=== PATIENT | male | born 1965 | race Caucasian/White ===

== ENCOUNTER → 2019-07-25 14:32 | Outpatient (BNVA) | payer MEDICARE, SELFPAY | PROVIDERS: Family Provider Nurse Practitioner Family; PCP Family Medicine; Visit Provider Nurse Practitioner | DX: F25.0 Schizoaffective disorder, bipolar type (principal); F70 Mild intellectual disabilities | CPT/HCPCS: 99213 ==

== ENCOUNTER → 2020-01-03 07:34 | Outpatient (BNVA) | payer MEDICARE, SELFPAY | PROVIDERS: Family Provider Nurse Practitioner Family; PCP Family Medicine; Visit Provider Nurse Practitioner | DX: F25.0 Schizoaffective disorder, bipolar type (principal); F70 Mild intellectual disabilities | CPT/HCPCS: 99214 ==

== ENCOUNTER → 2020-02-15 07:38 | Outpatient (BNVA) | payer MEDICARE, SELFPAY | PROVIDERS: Family Provider Nurse Practitioner Family; PCP Family Medicine; Visit Provider Nurse Practitioner | DX: F25.0 Schizoaffective disorder, bipolar type (principal); F70 Mild intellectual disabilities | CPT/HCPCS: 99214 ==

== ENCOUNTER → 2020-08-08 07:42 | Outpatient (BNVA) | payer MEDICARE, SELFPAY | PROVIDERS: Family Provider Nurse Practitioner Family; PCP Family Medicine; Visit Provider Nurse Practitioner | DX: F70 Mild intellectual disabilities (principal); F25.0 Schizoaffective disorder, bipolar type | CPT/HCPCS: 99214 ==

== ENCOUNTER 2020-11-11 09:34 | Emergency (ER) | payer MEDICARE, SELFPAY ==
[2020-11-11 09:36] VITALS: BP 153/71; PULSE 84; RESP 18; TEMP 36.8; O2SAT 97; BMI 38.0
[2020-11-11 09:51] VITALS: BP 153/71; PULSE 74; PULSE 75; RESP 18; O2SAT 95
--- NOTE | 2020-11-11 09:51 | CT_ITS ---
WS: [id number] CT HEAD TECHNIQUE: Noncontrast CT of the head obtained from the skullbase to the vertex. CLINICAL INFORMATION: Symptoms of Acute Stroke COMPARISON: None. DLP: 997.[address] scans at [facility] use at least one of these dose optimization techniques: automat ed exposure control; mA and/or kV adjustment per patient size (includes targeted exams where dose is matched to clinical indication); or iterative reconstruction. FINDINGS: No evidence of intracranial hemorrhage or mass effect. Ventricular system and basal cisterns are cook nt. Mild small vessel changes with moderate parenchymal volume loss. No extra-axial fluid collections . No evidence of mass or mass effect. Normal cochran-white differentiation. Chronic vermian atrophy is u nchanged Mucosal thickening ethmoid air cells and right mastoid tip. CT/CT head wo con* [id number] IMPRESSION: 1. No evidence of intracranial hemorrhage or mass effect. 2. Mild small vessel changes. Moderate parenchymal volume loss. 3. No acute intracranial findings. Notified Manuel Jernigan DO at 11/11/2020 10:40 AM.
--- NOTE | 2020-11-11 09:51 | ECG_ITS ---
[facility] Test Date: 2020-11-11 Pat Name: Luisito Wilkinson Department: Room: Gender: Male Control Panel Tester: : 1965 Requested By: Manuel Patrick Order Number: [id number] Dianne MD: Jarret Najera M.D. Measurements Intervals [place] Rate: 75 P: 19 ID: [id number] QRS: 94 QRSD: 101 T: 31 QT: 417 QTc: 466 Interpretive Statements SINUS RHYTHM BORDERLINE RIGHT AXIS DEVIATION [QRS AXIS > 90] INCOMPLETE RIGHT BUNDLE BRANCH BLOCK [90+ ms QRS DURATION, TERMINAL R IN V1/V2, 40+ ms S IN I/aVL/V4/V5/V6] No previous ECG available for comparison Electronically Signed On 11-12-2020 0:42:55 CDT by Jarret Najera M.D. [id number]
[2020-11-11 09:57] LABS: Basophils % 0.6 %; Eosinophils # 0.8 10^3/uL (0.0-0.8); Eosinophils % 10.7 %; Hemoglobin 13.2 g/dL (11.7-16.6); Lymphocytes # 1.7 10^3/uL (0.8-4.8); Lymphocytes % 23.8 %; Mean Corpuscular HGB Conc 31.4 g/dL (30.0-36.0); Mean Corpuscular Hemoglobin 25.8 pg (28.0-34.0); Mean Platelet Volume 10.1 fL (7.4-10.4); Monocytes # 0.3 10^3/uL (0.2-0.9); Monocytes % 4.5 %; Neutrophils # 4.33 10^3/uL (1.8-7.7); Neutrophils % 60.1 %; Nucleated Red Blood Cells % 0 %; Platelet Count 157 10^3/cmm (130-400); Red Blood Count 5.12 10^6/uL (4.1-5.3); White Blood Count 7.2 10^3/uL (4.0-10.0)
--- NOTE | 2020-11-11 10:10 | W.ED.NEUROSD ---
HPI - Neuro Symptoms/Deficit General: Chief Complaint: Neuro Symptoms/Deficit Stated Complaint: R SIDED FACIAL DROOPING SINCE WEDNESDAY Time Seen by Provider: 11/11/20 09:35 History of Present Illness: HPI Narrative: 55-year-old male presents emergency room via ambulance with a right-sided facial droop. Is been present for the last 3 days. Patient states he occasionally has some blurring of vision. Is having a little bit of difficulty eating and swallowing and drinking as well as drooling is noticed watering from the right eye. No weakness in his hands or feet. His gait has been unaffected. Patient also notes alteration in taste since began this began Onset (ago): day(s) (3) Timing confirmed by: caregiver Location: right face History of same: No Severity: mild Quality: weak Relieving factors: none Exacerbating factors: none Context: sudden onset On Anticoagulants: No Associated symptoms: Deny chest pain, cough, diaphoresis, fevers/chills, headache(s), anorexia, malaise, nausea, seizures, short of breath, syncope, tingling, vertigo, vomiting, weakness or other Treatments Prior to Arrival: none Review of Systems Const: Denies: malaise or diaphoresis ENMT: Denies: throat pain, ear or mastoid pain, nasal discharge or nasal congestion Card: Denies: chest pain or syncope Resp: Denies: dyspnea, productive cough or non-productive cough GI: Denies: nausea or vomiting : Denies: flank pain, dysuria, urinary frequency or urinary urgency Skin/Breast: Denies: rash or pruritus Neuro: Denies: headache(s) or vertigo PFS ED PFSH: Medical History Mild intellectual disabilities Schizoaffective disorder, bipolar type Social History Smoking and tobacco status: never smoked Physical Exam Const: COMMON NORMALS: no acute distress GENERAL APPEARANCE: cooperative and comfortable ORIENTATION/CONSCIOUSNESS: Yes awake, Yes oriented to person, Yes oriented to place and Yes oriented to time HENMT: COMMON NORMALS: normocephalic, atraumatic, hearing grossly normal bilaterally, external ears normal, EAC's normal, TM's normal bilaterally, Normal nasal mucous membranes and turbinates present, moist oral mucous membranes and oropharynx normal HEAD & SCALP: normocephalic and atraumatic NOSE: Normal nasal mucous membranes and turbinates present EXTERNAL EAR: Yes external ears normal EXTERNAL AUDITORY CANAL: EAC's normal TYMPANIC MEMBRANE: TM's normal bilaterally Neck/C-Spine: COMMON NORMALS: full ROM, no lymphadenopathy, supple and no JVD Lymph: LYMPHATIC: no lymphadenopathy noted and no lymphedema noted Resp: COMMON NORMALS: normal respiratory effort, No retractions, No use of accessory muscles and clear to auscultation bilaterally AUSCULTATION: clear to auscultation bilaterally Cardio: COMMON NORMALS: no JVD, regular rate, regular rhythm and No murmurs present (Cardio) RATE: regular rate RHYTHM: regular rhythm GI: COMMON NORMALS: Soft to palpation and No hepatosplenomegaly present AUSCULTATION: Yes normoactive bowel sounds PALPATION: Yes Soft to palpation, No Tenderness to palpation present (GI), No Guarding due to palpation present (GI) and Yes No hepatosplenomegaly present Extremity: COMMON NORMALS: normal to inspection, capillary refill normal, no clubbing, cyanosis or edema, no calf tenderness and no pedal edema Neuro: SENSORIUM/ORIENTATION: Yes oriented to person, Yes oriented to place and Yes oriented to time Skin: COMMON NORMALS: no rashes or lesions noted GENERAL SKIN EXAM: no rashes or lesions noted Course Vital Signs: Vital signs: Vital Signs Temperature 98.2 F 11/11/20 09:36 Pulse Rate 74 11/11/20 10:33 Respiratory Rate 15 11/11/20 12:14 Blood Pressure 153/71 11/11/20 09:51 Pulse Oximetry 95 11/11/20 09:51 MDM - Neuro Symptoms/Deficit MDM Narrative: Medical decision making narrative: No sparing the forehead no other neurologic deficits CT is negative. Has had this deficit for several days. 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 Discussed with him possible steroids and I am concerned about raising his blood sugars will just hold off with that for now follow-up with his primary care doctor return if has problems. Lab Data: Labs: Lab Results 11/11/20 11/11/20 11/11/20 Range/Units 09:50 09:50 10:20 WBC 7.2 (4.0-10.0) 10^3/ uL RBC 5.12 (4.1-5.3) 10^6/u L Hgb 13.2 (11.7-16.6) g/dL Hct 42.0 (42.0-52.0) % MCV 82.0 (80-94) fL MCH 25.8 L (28.0-34.0) pg MCHC 31.4 (30.0-36.0) g/dL RDW 14.0 (12.1-15.1) % Plt Count 157 (130-400) 10^3/c mm MPV 10.1 (7.4-10.4) fL Neut % (Auto) 60.1 % Lymph % (Auto) 23.8 % [place] % (Auto) 4.5 % Eos % (Auto) 10.7 % Baso % (Auto) 0.6 % Neut # (Auto) 4.33 (1.8-7.7) 10^3/u L Lymph # (Auto) 1.7 (0.8-4.8) 10^3/u L [place] # (Auto) 0.3 (0.2-0.9) 10^3/u L Eos # (Auto) 0.8 (0.0-0.8) 10^3/u L Baso # (Auto) 0.0 (0.0-0.1) 10^3/u L Nucleated RBC % (a uto) 0 % Nucleated RBCs # 0.0 /100WBC PT 14.30 (12.1-14.9) SECO NDS INR 1.08 (0.8-1.2) APTT 26.6 (23.9-36.7) SECO NDS Sodium 136 (136-145) mmol/L Potassium 4.2 (3.5-5.1) mmol/L Chloride 99 (98-107) mmol/L Carbon Dioxide 24 (22-29) mmol/L Anion Gap 17.2 (5-19) BUN 10 (6-20) mg/dL Creatinine 0.6 L (0.7-1.2) mg/dL GFR Calculation 138.9 H (90-130) mL/min Glucose 286 H (65-115) mg/dL Calculated Osmolal ity 291 (285-295) mOsm/k g Calcium 8.5 (8.5-10.5) mg/dL Total Bilirubin 0.6 (0.15-1.2) mg/dL AST 39 (0-40) U/L ALT 54 H (0-41) U/L Alkaline Phosphata se 56 (40-130) IU/L Total Protein 7.2 (6.6-8.7) g/dL Albumin 4.4 (3.5-5.2) g/dL Globulin 2.8 (1.3-4.6) g/dL Urine Color (Yellow) Urine Appearance (CLEAR) Urine pH (5-7) Ur Specific Gravit y (1.005-1.030) Urine Protein (Negative) Urine Glucose (UA) (Normal) Urine Ketones (Negative) Urine Blood (Negative) Urine Nitrate (Negative) Urine Bilirubin (Negative) Urine Urobilinogen (Negative) mg/dL Ur Leukocyte Gracie ase (Negative) Urine Opiates Scre en (Negative) ng/mL Ur Barbiturates Sc reen (Negative) ng/mL Ur Phencyclidine S crn (Negative) ng/mL Ur Amphetamines Sc reen (Negative) ng/mL U Benzodiazepines Scrn (Negative) ng/mL Urine Cocaine Scre en (Negative) ng/mL U Marijuana (THC) Screen (Negative) ng/mL 11/11/20 11/11/20 Range/Units 10:40 10:40 WBC (4.0-10.0) 10^3/ uL RBC (4.1-5.3) 10^6/u L Hgb (11.7-16.6) g/dL Hct (42.0-52.0) % MCV (80-94) fL MCH (28.0-34.0) pg MCHC (30.0-36.0) g/dL RDW (12.1-15.1) % Plt Count (130-400) 10^3/c mm MPV (7.4-10.4) fL Neut % (Auto) % Lymph % (Auto) % [place] % (Auto) % Eos % (Auto) % Baso % (Auto) % Neut # (Auto) (1.8-7.7) 10^3/u L Lymph # (Auto) (0.8-4.8) 10^3/u L [place] # (Auto) (0.2-0.9) 10^3/u L Eos # (Auto) (0.0-0.8) 10^3/u L Baso # (Auto) (0.0-0.1) 10^3/u L Nucleated RBC % (a uto) % Nucleated RBCs # /100WBC PT (12.1-14.9) SECO NDS INR (0.8-1.2) APTT (23.9-36.7) SECO NDS Sodium (136-145) mmol/L Potassium (3.5-5.1) mmol/L Chloride (98-107) mmol/L Carbon Dioxide (22-29) mmol/L Anion Gap (5-19) BUN (6-20) mg/dL Creatinine (0.7-1.2) mg/dL GFR Calculation (90-130) mL/min Glucose (65-115) mg/dL Calculated Osmolal ity (285-295) mOsm/k g Calcium (8.5-10.5) mg/dL Total Bilirubin (0.15-1.2) mg/dL AST (0-40) U/L ALT (0-41) U/L Alkaline Phosphata se (40-130) IU/L Total Protein (6.6-8.7) g/dL Albumin (3.5-5.2) g/dL Globulin (1.3-4.6) g/dL Urine Color Straw (Yellow) Urine Appearance Clear (CLEAR) Urine pH 7 (5-7) Ur Specific Gravit y 1.010 (1.005-1.030) Urine Protein Neg (Negative) Urine Glucose (UA) 4+ H (Normal) Urine Ketones Negative (Negative) Urine Blood Neg (Negative) Urine Nitrate Negative (Negative) Urine Bilirubin Neg (Negative) Urine Urobilinogen Norm (Negative) mg/dL Ur Leukocyte Gracie ase Negative (Negative) Urine Opiates Scre en Negative (Negative) ng/mL Ur Barbiturates Sc reen Negative (Negative) ng/mL Ur Phencyclidine S crn Negative (Negative) ng/mL Ur Amphetamines Sc reen Negative (Negative) ng/mL U Benzodiazepines Scrn Negative (Negative) ng/mL Urine Cocaine Scre en Negative (Negative) ng/mL U Marijuana (THC) Screen Negative (Negative) ng/mL Discharge Plan Discharge Patient Disposition: Home Clinical Impression: Thomas's palsy Condition: Stable Prescriptions: No Action rosuvastatin [Crestor] 20 mg tablet 20 mg PO DAILY@20 RF: 0 omeprazole 40 mg capsule,delayed release(DR/EC) 40 mg PO DAILY@07 RF: 0 amlodipine 10 mg tablet 10 mg PO DAILY@08 RF: 0 olmesartan [Benicar] 40 mg tablet 40 mg PO DAILY@07 RF: 0 Ozempic 0.25 mg or 0.5 mg(2 mg/1.5 mL) pen injector 0.5 mg SUBCUT Q7D RF: 0 acetaminophen 325 mg Tablet 325 - 650 mg PO Q6H PRN (Reason: Pain) RF: 0 oxybutynin chloride 10 mg Tablet Extended Release 24hr 10 mg PO DAILY@08 RF: 0 metoprolol succinate 50 mg Tablet Extended Release 24 Hr 50 mg PO DAILY@07 RF: 0 Imodium A-D 2 mg Tablet 2 mg PO TID PRN (Reason: unknown) RF: 0 Aspir-81 81 mg Tablet,Delayed Release (Dr/Ec) 81 mg PO DAILY@07 RF: 0 hydrochlorothiazide 12.5 mg Capsule 12.5 mg PO DAILY@07 RF: 0 ibuprofen 600 mg Tablet 600 mg PO TID PRN (Reason: Pain) RF: 0 risperidone 1 mg Tablet 1 mg PO BID@, RF: 0 metformin 500 mg Tablet Extended Release 24hr 1,000 mg PO BID@, RF: 0 Milk Of Magnesia Concentrated 2,400 mg/10 mL Suspension 30 ml PO DAILY PRN (Reason: Acid Reflux) RF: 0 Amelia 3 350-400 mg Capsule 1 cap PO DAILY@07 RF: 0 desmopressin 0.2 mg tablet 0.1 mg PO DAILY@20 RF: 0 sertraline 100 mg tablet 100 mg PO DAILY@07 RF: 0 Latuda 80 mg tablet 80 mg PO DAILY@07 RF: 0 Antifungal Cream (miconazole) 2 % Cream 1 applic TOPICAL BID@, RF: 0 Eucerin Lotion 1 applic TOPICAL DAILY@20 RF: 0 Humalog KwikPen Insulin 100 unit/mL Insulin Pen 12 unit SUBCUT TID RF: 0 Gold Queen Medicated Foot 1 % Powder 1 applic TOPICAL DAILY@06 RF: 0 Minerin Creme Cream 1 applic TOPICAL DAILY@20 RF: 0 Tresiba FlexTouch U-200 200 unit/mL (3 mL) Insulin Pen 66 unit SUBCUT BID@07,21 RF: 0 Discharge Orders: Discharge ED (Routine); Ordered 11/11/20 Ordered By: Manuel Jernigan Patient Instructions: Opioid Safety Coding Level of Care Code ED Splicing Supervisor for Chg Fwd Exam Comprehensive
[2020-11-11 10:29] LABS: Alanine Aminotransferase 54 U/L (0-41); Albumin Level 4.4 g/dL (3.5-5.2); Alkaline Phosphatase 56 IU/L (40-130); Anion Gap 17.2 (5-19); Aspartate Amino Transferase 39 U/L (0-40); Blood Urea Nitrogen 10 mg/dL (6-20); Calcium 8.5 mg/dL (8.5-10.5); Carbon Dioxide 24 mmol/L (22-29); Chloride 99 mmol/L (98-107); Globulin 2.8 g/dL (1.3-4.6); Glomerular Filtration Rate 138.9 mL/min (90-130); Glucose 286 mg/dL (65-115); Osmolality Calculated 291 mOsm/kg (285-295); Potassium 4.2 mmol/L (3.5-5.1); Sodium 136 mmol/L (136-145); Total Bilirubin 0.6 mg/dL (0.15-1.2); Total Protein 7.2 g/dL (6.6-8.7)
[2020-11-11 10:33] VITALS: PULSE 74
[2020-11-11 10:40] LABS: INR 1.08 (0.8-1.2)
[2020-11-11 10:41] LABS: Partial Thromboplastin Time 26.6 SECONDS (23.9-36.7)
[2020-11-11 10:49] LABS: Add Urine Microscopic? NO; Charge for UA Resulting for Rev
[2020-11-11 10:57] LABS: Urine Appearance Clear (CLEAR); Urine Color Straw (Yellow); pH Urine 7 (5-7)
[2020-11-11 10:58] LABS: Bilirubin Urine Neg (Negative); Blood Urine Neg (Negative); Glucose Urine UA 4+ (Normal); Ketones Urine Negative (Negative); Leukocyte Esterase Urine Negative (Negative); Nitrate Urine Negative (Negative); Protein Urine Neg (Negative); Urobilinogen Urine Norm (Negative)
[2020-11-11 11:09] LABS: Amphetamines Screen Urine Negative (Negative); Barbiturates Screen Urine Negative (Negative); Benzodiazepines Screen Urine Negative (Negative); Cocaine Screen Urine Negative (Negative); Opiate Screen Urine Negative (Negative); PCP Screen Urine Negative (Negative); THC Screen Urine Negative (Negative)
[2020-11-11 11:33] VITALS: RESP 15
[2020-11-11 12:14] VITALS: RESP 15
== END 2020-11-11 12:20 | disposition home or self-care (01) ==
PROVIDERS: Emergency Provider Family Medicine
DX: G51.0 Bell's palsy (principal); Z79.82 Long term (current) use of aspirin; Z79.4 Long term (current) use of insulin; Z79.899 Other long term (current) drug therapy
CPT/HCPCS: 70450; 80053; 80306; 81003; 85025; 85610; 85730; 93005; 99284

== ENCOUNTER 2021-11-18 18:14 | Emergency (ER) | payer OTHER, MEDICARE, SELFPAY ==
--- NOTE | 2021-11-18 18:15 | ECG_ITS ---
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 Measurements Intervals [place] Rate: 96 P: 18 DE: 125 QRS: 70 QRSD: 106 T: 44 QT: 365 QTc: 463 Interpretive Statements SINUS RHYTHM Compared to ECG 11/11/2020 10:21:44 Incomplete right bundle-branch block no longer present Electronically Signed On 11-18-2021 18:54:11 CDT by Jarret Najera M.D. [id number]
--- NOTE | 2021-11-18 18:15 | XRR_ITS ---
PROCEDURE INFORMATION: Exam: XR Chest Exam date and time: 11/18/2021 6:22 PM Age: 56 years old Clinical indication: Chest wall pain; Additional info: Cp TECHNIQUE: Imaging protocol: XR of the chest. Views: 1 view. COMPARISON: No relevant prior studies available. FINDINGS: Lungs: Unremarkable. No consolidation. Pleural spaces: Unremarkable. No pleural effusion. No pneumothorax. Heart/Mediastinum: Unremarkable. No cardiomegaly. Bones/joints: Unremarkable. XR/XR chest 1V portable [id number] IMPRESSION: No acute findings.
--- NOTE | 2021-11-18 18:21 | CTR_ITS ---
PROCEDURE INFORMATION: Exam: CT Head Without Contrast Exam date and time: 11/18/2021 6:51 PM Age: 56 years old Clinical indication: Other: Drowsy, lethargic; Additional info: History--received shingles vaccine today and after receiving it he became drowsy/lethargic, clammy, and had chest pain. TECHNIQUE: Imaging protocol: Computed tomography of the head without contrast. Radiation optimization: All CT scans at this facility use at least one of these dose optimization techniques: automated exposure control; mA and/or kV adjustment per patient size (includes targeted exams where dose is matched to clinical indication); or iterative reconstruction. COMPARISON: CT head wo con* [id number] 11/11/2020 10:03 AM RADIATION DOSE METRICS: Total DLP (mGy-cm): 3130.77 FINDINGS: Brain: Normal. No hemorrhage. Unremarkable white matter. No mass effect. Cerebral ventricles: No ventriculomegaly. Paranasal sinuses: Bilateral maxillary sinus mucosal thickening without air-fluid level. Mastoid air cells: Visualized mastoid air cells are well aerated. Bones/joints: Unremarkable. No acute fracture. Soft tissues: Unremarkable. CT/CT head wo con* [id number] IMPRESSION: Negative for acute intracranial abnormality.
--- NOTE | 2021-11-18 18:27 | W.ED.CHESTPA ---
HPI - Chest Pain General: Chief Complaint: General Medical Stated Complaint: STEMI ALERT Time Seen by Provider: 11/18/21 18:15 Source: EMS Mode of arrival: EMS Limitations: no limitations History of Present Illness: 56-year-old male who is here from an assisted living [facility] was normal then states that when he came back at 4 he had been having some slurred speech generalized weakness difficulty walking also complaining of chest pain and shortness of breath. Patient here states that he just feels weak all over and is having some slight chest pain he rates a 1 out of 10 he feels short of breath. He denies any worsening improving factors last known normal was 2 PM. EMS was called for STEMI alert reviewing his EKG with him and his EKG here it is not a STEMI. Associated symptoms: Reports dyspnea; Deny abdominal pain, nausea or vomiting Review of Systems Const: Reports: fatigue Eyes: Denies: blurry vision or eye discomfort ENMT: Denies: throat pain or dental pain Card: Reports: chest pain Resp: Reports: dyspnea GI: Denies: abdominal pain, nausea, vomiting or diarrhea : Denies: dysuria Musc: Denies: neck pain or back pain Skin/Breast: Denies: rash Neuro: Reports: weakness in extremities Psych: Denies: depression Sreekanth/Lymph: Denies: easy bruising All/Imm: Denies: urticaria PFSH ED PFSH: Medical History Mild intellectual disabilities Schizoaffective disorder, bipolar type Social History Smoking and tobacco status: never smoked Course Vital Signs: Vital signs: Vital Signs Temperature 98.2 F 11/18/21 18:31 Pulse Rate 94 11/18/21 18:31 Respiratory Rate 22 H 11/18/21 18:31 Blood Pressure 131/63 11/18/21 18:31 Pulse Oximetry 92 11/18/21 18:31 MDM - Chest Pain Medical Decision Making Patient presents here with some generalized weakness very mild chest pain is initial repeat troponins and EKGs here are all normal after speaking to the [place] [facility] his weakness is actually at his baseline he has no focal deficits he does have some slurred speech but talking to [facility] again that is his baseline and he is at his baseline here. He was able to ambulate the halls here with a walker without any difficulty and uses a walker in the [facility]. X-ray shows no signs of pneumonia he is stable for discharge back to [facility] return if worsening he understands agrees to plan. Lab Data : 11/18/21 18:15 11/18/21 18:15 Radiology Impressions Chest X-Ray 11/18/21 18:15 IMPRESSION: No acute findings. Head CT 11/18/21 18:21 IMPRESSION: Negative for acute intracranial abnormality. Laboratory Results WBC 12.5 10^3/uL (4.0-10.0) H 11/18/21 18:15 RBC 4.74 10^6/uL (4.1-5.3) 11/18/21 18:15 Hgb 11.9 g/dL (11.7-16.6) 11/18/21 18:15 Hct 37.3 % (42.0-52.0) L 11/18/21 18:15 MCV 78.7 fl (80-94) L 11/18/21 18:15 MCH 25.1 pg (28.0-34.0) L 11/18/21 18:15 MCHC 31.9 g/dL (30.0-36.0) 11/18/21 18:15 RDW 15.0 % (12.1-15.1) 11/18/21 18:15 Plt Count 164 10^3/cmm (130-400) 11/18/21 18:15 MPV 10.6 fL (7.4-10.4) H 11/18/21 18:15 Neut % (Auto) 80.2 % 11/18/21 18:15 Lymph % (Auto) 11.7 % 11/18/21 18:15 [place] % (Auto) 6.6 % 11/18/21 18:15 Eos % (Auto) 0.9 % 11/18/21 18:15 Baso % (Auto) 0.3 % 11/18/21 18:15 Neut # (Auto) 10.03 10^3/uL (1.8-7.7) H 11/18/21 18:15 Lymph # (Auto) 1.5 10^3/uL (0.8-4.8) 11/18/21 18:15 [place] # (Auto) 0.8 10^3/uL (0.2-0.9) 11/18/21 18:15 Eos # (Auto) 0.1 10^3/uL (0.0-0.8) 11/18/21 18:15 Baso # (Auto) 0.0 10^3/uL (0.0-0.1) 11/18/21 18:15 Nucleated RBC % (auto) 0 % 11/18/21 18:15 Nucleated RBCs # 0.0 /100WBC 11/18/21 18:15 PT 15.40 SECONDS (12.1-14.9) H 11/18/21 18:15 INR 1.18 (0.8-1.2) 11/18/21 18:15 D-Dimer <= 0.27 ug/mIFEU (0-0.59) 11/18/21 18:15 Specimen Type Arterial 11/18/21 18:30 Sample Site Radial, right 11/18/21 18:30 ABG pH 7.38 (7.35-7.45) 11/18/21 18:30 ABG pCO2 42.9 mmHg (35-45) 11/18/21 18:30 ABG pO2 71.6 mmHg (80.0-100.0) L 11/18/21 18:30 ABG HCO3 25.5 mmol/L (22-26) 11/18/21 18:30 ABG Base Excess 0.2 mmol/L (-2.0-2.0) 11/18/21 18:30 Junior Test Pos 11/18/21 18:30 Hematocrit 38.2 % (42-52) L 11/18/21 18:30 O2 Delivery Device Nc 11/18/21 18:30 O2 Liters/Min 2.0 % 11/18/21 18:30 FiO2 28.0 % 11/18/21 18:30 Hotel Manager ID Gd 11/18/21 18:30 Sodium 133 mmol/L (136-145) L 11/18/21 18:15 Potassium 3.8 mmol/L (3.5-5.1) 11/18/21 18:15 Chloride 95 mmol/L (98-107) L 11/18/21 18:15 Carbon Dioxide 23 mmol/L (22-29) 11/18/21 18:15 Anion Gap 18.8 (5-19) 11/18/21 18:15 BUN 21 mg/dL (6-20) H 11/18/21 18:15 Creatinine 1.0 mg/dL (0.7-1.2) 11/18/21 18:15 GFR Calculation 76.7 mL/min (90-130) L 11/18/21 18:15 Glucose 297 mg/dL (65-115) H 11/18/21 18:15 Calculated Osmolality 290 mOsm/kg (285-295) 11/18/21 18:15 Calcium 8.3 mg/dL (8.5-10.5) L 11/18/21 18:15 Total Bilirubin 0.6 mg/dL (0.15-1.2) 11/18/21 18:15 AST 23 U/L (0-40) 11/18/21 18:15 ALT 37 U/L (0-41) 11/18/21 18:15 Alkaline Phosphatase 57 IU/L (40-130) 11/18/21 18:15 Troponin T Baseline 21 ng/L (0-15) H 11/18/21 18:15 Troponin T 120 Minute 18.72 ng/L (0-15) H 11/18/21 20:36 Delta Troponin T -2.28 ABS# (0-10) L 11/18/21 20:36 NT-Pro-B Natriuret Pep 203 pg/mL (0-125) H 11/18/21 18:15 Total Protein 6.7 g/dL (6.6-8.7) 11/18/21 18:15 Albumin 4.3 g/dL (3.5-5.2) 11/18/21 18:15 Globulin 2.4 g/dL (1.3-4.6) 11/18/21 18:15 EKG Data EKG 1: I personally reviewed and interpreted this EKG as follows: EKG interpretation date: 11/18/21 EKG interpretation time: 18:19 Interpretation: nsr hr [address] or t wave abnormalities qrs 106 qtc 419 EKG 2: I personally reviewed and interpreted this EKG as follows: EKG interpretation date: 11/18/21 EKG interpretation time: 19:35 Interpretation: nsr hr [address] or t wave abnormalities qrs 91 qtc 425 Discharge Plan Discharge Patient Disposition: Home Clinical Impression: Weakness, Chest pain Condition: Stable Prescriptions: No Action rosuvastatin [Crestor] 20 mg tablet 20 mg PO DAILY@20 0RF omeprazole 40 mg capsule,delayed release(DR/EC) 40 mg PO DAILY@07 0RF amlodipine 10 mg tablet 10 mg PO DAILY@08 0RF olmesartan [Benicar] 40 mg tablet 40 mg PO DAILY@07 0RF Ozempic 0.25 mg or 0.5 mg(2 mg/1.5 mL) pen injector 0.5 mg SUBCUT Q7D 0RF Rx Instructions: @08:00 -on wed acetaminophen 325 mg Tablet 325 - 650 mg PO Q6H PRN (Reason: Pain) 0RF oxybutynin chloride 10 mg Tablet Extended Release 24hr 10 mg PO DAILY@08 0RF metoprolol succinate 50 mg Tablet Extended Release 24 Hr 50 mg PO DAILY@07 0RF loperamide [Imodium A-D] 2 mg Tablet 2 mg PO TID PRN (Reason: Constipation) 0RF aspirin [Aspir-81] 81 mg Tablet,Delayed Release (Dr/Ec) 81 mg PO DAILY@07 0RF hydrochlorothiazide 12.5 mg Capsule 12.5 mg PO DAILY@07 0RF ibuprofen 600 mg Tablet 600 mg PO TID PRN (Reason: Pain) 0RF risperidone 1 mg Tablet 1 mg PO BID@07,20 0RF metformin 500 mg Tablet Extended Release 24hr 1,000 mg PO BID@07,17 0RF magnesium hydroxide [Milk Of Magnesia Concentrated] 2,400 mg/10 mL Suspension 30 ml PO DAILY PRN (Reason: Acid Reflux) 0RF desmopressin 0.2 mg tablet 0.1 mg PO DAILY@20 0RF sertraline 100 mg tablet 100 mg PO DAILY@07 0RF Latuda 80 mg tablet 80 mg PO DAILY@07 0RF Rx Instructions: must administer with food (at least 350 calories) miconazole nitrate [Antifungal Cream (miconazole)] 2 % Cream 1 applic TOPICAL BID@06,20 0RF Rx Instructions: apply to toe nails insulin lispro [Humalog KwikPen Insulin] 100 unit/mL Insulin Pen See Rx Instructions .ROUTE .COMPLEX 0RF Rx Instructions: PER SLIDING SCALE [place] Medicated Foot 1 % Powder 1 applic TOPICAL DAILY@06 0RF Minerin Creme Cream 1 applic TOPICAL DAILY@20 0RF Tresiba FlexTouch U-200 200 unit/mL (3 mL) Insulin Pen 66 unit SUBCUT BID@07,21 0RF glipizide 5 mg Tablet 5 mg PO DAILY 0RF Fish Oil 1,000 mg (120 mg-180 mg) Capsule 1 cap PO DAILY 0RF Jardiance 10 mg Tablet 10 mg PO DAILY 0RF Artificial Tears (cmc) 1 % Drops 1 drp OPHTHALMIC (EYE) TID 0RF GenTeal PM 94-3 % Ointment 1 applic OPHTHALMIC (EYE) BEDTIME 0RF Discharge Orders: Discharge ED (Routine); Ordered 11/18/21 Ordered By: Ryan Boles Discharge Diet: Advance as tolerated Discharge Activity: Resume usual activity Patient Instructions: Weakness (ED) Coding Level of Care Code ED Echocardiograph Technician for Heath Andres
[2021-11-18 18:31] VITALS: BP 131/63; PULSE 94; RESP 22; TEMP 36.8; O2SAT 92; BMI 39.2
[2021-11-18 18:37] LABS: Basophils % 0.3 %; Eosinophils # 0.1 10^3/uL (0.0-0.8); Eosinophils % 0.9 %; Hematocrit 37.3 % (42.0-52.0); Hemoglobin 11.9 g/dL (11.7-16.6); Lymphocytes # 1.5 10^3/uL (0.8-4.8); Lymphocytes % 11.7 %; Mean Corpuscular HGB Conc 31.9 g/dL (30.0-36.0); Mean Corpuscular Hemoglobin 25.1 pg (28.0-34.0); Mean Corpuscular Volume 78.7 fl (80-94); Mean Platelet Volume 10.6 fL (7.4-10.4); Monocytes # 0.8 10^3/uL (0.2-0.9); Monocytes % 6.6 %; Neutrophils # 10.03 10^3/uL (1.8-7.7); Neutrophils % 80.2 %; Nucleated Red Blood Cells % 0 %; Platelet Count 164 10^3/cmm (130-400); Red Blood Count 4.74 10^6/uL (4.1-5.3); White Blood Count 12.5 10^3/uL (4.0-10.0)
[2021-11-18 18:46] LABS: ABG PCO2 42.9 mmHg (35-45); ABG PH Result 7.38 (7.35-7.45); Arterial Blood Gas Hematocrit 38.2 % (42-52); Base Excess ABG 0.2 mmol/L (-2.0-2.0); Blood Gas Allen Test Pos; Blood Gas Operator Identificat GD; Blood Gas Sample Site Radial, right; Blood Gas Sample Type Arterial; HCO3 ABG 25.5 mmol/L (22-26); Oxygen Device NC; PO2 ABG 71.6 mmHg (80.0-100.0)
[2021-11-18 18:50] LABS: INR 1.18 (0.8-1.2)
[2021-11-18 18:52] LABS: D Dimer <= 0.27 ug/mIFEU (0-0.59)
[2021-11-18 18:57] LABS: Troponin(5th) Baseline 21 ng/L (0-15)
[2021-11-18 18:59] LABS: Alanine Aminotransferase 37 U/L (0-41); Albumin Level 4.3 g/dL (3.5-5.2); Alkaline Phosphatase 57 IU/L (40-130); Anion Gap 18.8 (5-19); Aspartate Amino Transferase 23 U/L (0-40); Blood Urea Nitrogen 21 mg/dL (6-20); Calcium 8.3 mg/dL (8.5-10.5); Carbon Dioxide 23 mmol/L (22-29); Chloride 95 mmol/L (98-107); Globulin 2.4 g/dL (1.3-4.6); Glomerular Filtration Rate 76.7 mL/min (90-130); Glucose 297 mg/dL (65-115); Osmolality Calculated 290 mOsm/kg (285-295); Potassium 3.8 mmol/L (3.5-5.1); Sodium 133 mmol/L (136-145); Total Bilirubin 0.6 mg/dL (0.15-1.2); Total Protein 6.7 g/dL (6.6-8.7)
[2021-11-18 19:14] LABS: NT Pro B Type Natriuretic Pept 203 pg/mL (0-125)
--- NOTE | 2021-11-18 20:15 | ECG_ITS ---
[facility] Test Date: 2021-11-18 Pat Name: Luisito Wilkinson Department: Room: Gender: Male Director Investor Relations: : 1965 Requested By: Ryan Boles Order Number: [id number] Dianne MD: Emmanuelle Thibodeaux M.D. Measurements Intervals [place] Rate: 91 P: 23 AK: 108 QRS: 75 QRSD: 109 T: 54 QT: 378 QTc: 466 Interpretive Statements SINUS RHYTHM WITH SHORT AK INTERVAL EARLY REPOLARIZATION [ST ELEVATION WITH NORMALLY INFLECTED T-WAVE] Compared to ECG 11/18/2021 18:19:24 Short AK interval now present Early repolarization now present Electronically Signed On 11-20-2021 11:49:31 CDT by Emmanuelle Thibodeaux M.D. [id number]
[2021-11-18 21:00] LABS: Troponin 5 2HR 18.72 ng/L (0-15)
[2021-11-18 21:01] LABS: Troponin 5 2HR Delta -2.28 ABS# (0-10)
--- NOTE | 2021-11-18 21:25 | PC.NURSE ---
Able to walk down hallway and back with our walker. Pt. states that he usually has his own walker that has 4 wheels.
[2021-11-18 22:54] VITALS: BP 168/88; PULSE 78; RESP 18; O2SAT 91
== END 2021-11-18 22:57 | disposition home or self-care (01) ==
PROVIDERS: Emergency Provider Emergency Medicine
DX: R07.9 Chest pain, unspecified (principal); R53.1 Weakness; F70 Mild intellectual disabilities
CPT/HCPCS: 36600; 70450; 71045; 80053; 82803; 83880; 84484; 85025; 85378; 85610; 93005; 99284

== ENCOUNTER 2021-11-19 04:16 | Inpatient (IN) | payer OTHER, SELFPAY ==
[2021-11-19] VITALS (67 sets, daily range): BP systolic 71–152; BP diastolic 42–76; PULSE 64–141; RESP 13–25; TEMP 36.5–36.7; O2SAT 86–100; BMI 41.8
--- NOTE | 2021-11-19 04:19 | ECG_ITS ---
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 Measurements Intervals [place] Rate: 135 P: [place]: QRS: 89 QRSD: 103 T: 27 QT: 339 QTc: 509 Interpretive Statements ATRIAL FIBRILLATION WITH RAPID VENTRICULAR RESPONSE ABNORMAL RHYTHM ECG Compared to ECG 11/18/2021 19:35:56 Sinus rhythm no longer present Short OH interval no longer present Early repolarization no longer present Electronically Signed On 11-20-2021 22:26:17 CDT by Enrike Reed M.D. [id number]
--- NOTE | 2021-11-19 04:19 | XRR_ITS ---
PROCEDURE INFORMATION: Exam: XR Left Knee Exam date and time: 11/19/2021 4:37 AM Age: 56 years old Clinical indication: Injury or trauma; Fall; Blunt trauma; Left; Patient HX: Patient fell attempting to go to the bathroom. Abrasion across anterior aspect of knee. TECHNIQUE: Imaging protocol: XR Left knee. Views: 3 views. COMPARISON: No relevant prior studies available. FINDINGS: Bones/joints: No acute fracture. No dislocation. Soft tissues: Normal. XR/XR knee LT 3V* [id number] IMPRESSION: No acute findings.
--- NOTE | 2021-11-19 04:19 | XRR_ITS ---
PROCEDURE INFORMATION: Exam: XR Chest Exam date and time: 11/19/2021 4:35 AM Age: 56 years old Clinical indication: Shortness of breath and tachypnea; Patient HX: General weakness with tachycardia, hypotension, and mild hypoxia on monitor. ; Additional info: Cp TECHNIQUE: Imaging protocol: XR of the chest. Views: 1 view. COMPARISON: CR XR chest 1V portable [id number] 11/18/2021 6:22 PM FINDINGS: Lungs: No consolidation. Pleural spaces: Unremarkable. No pleural effusion. No pneumothorax. Heart/Mediastinum: No cardiomegaly. Bones/joints: No acute fracture. XR/XR chest 1V portable [id number] IMPRESSION: No acute findings.
--- NOTE | 2021-11-19 04:21 | ED_ITS ---
HPI - Weakness General: Chief complaint: General Medical Stated complaint: weakness Time Seen by Provider: 11/19/21 04:17 Source: EMS Mode of arrival: EMS Limitations: no limitations History of Present Illness: 56-year-old male who was seen here earlier tonight for generalized weakness he had a negative work-up including negative troponins D-dimer and a head CT was normal patient was ambulatory with his walker and was discharged back to intermediate per intermediate he had gotten up and tried to go the bathroom and slipped and fell and had increasing weakness per EMS when they arrived patient was in A. fib with RVR he has no history of A. fib with RVR is having some slight hypotension as well he is requiring 4 L of oxygen. Patient states that he just feels weak denies any pain anywhere he did scrape his knee when he had fell did not hit his head. Patient was given 20 mg of Cardizem in route Associated symptoms: Denies chills, dysuria, easy bruising, fever(s), headache(s), nausea or vomiting Review of Systems Const: Denies: fever(s), chills, body aches or change in appetite Eyes: Denies: blurry vision or eye discomfort ENMT: Denies: throat pain or dental pain Card: Reports: palpitations Resp: Reports: dyspnea GI: Denies: abdominal pain, nausea, vomiting or diarrhea : Denies: dysuria Musc: Reports: muscle weakness Skin/Breast: Denies: rash Neuro: Denies: headache(s) Psych: Denies: depression Sreekanth/Lymph: Denies: easy bruising All/Imm: Denies: urticaria PFS ED PFSH: Medical History (Updated 11/19/21 @ 08:16 by Azeem Conley MD) Hyperlipidemia Mild intellectual disabilities Schizoaffective disorder, bipolar type Weakness Social History Smoking and tobacco status: never smoked Physical Exam Const: COMMON NORMALS: patient oriented x3 GENERAL APPEARANCE: in distress HENMT: COMMON NORMALS: normocephalic and atraumatic HEAD & SCALP: normocephalic and atraumatic Eye: COMMON NORMALS: Equal, round and reactive pupils present and EOMs intact bilaterally PUPIL: Yes Equal, round and reactive pupils present Neck/C-Spine: COMMON NORMALS: full ROM and supple Chest: COMMONS NORMALS: normal inspection of the chest and normal palpation of entire chest wall Resp: COMMON NORMALS: normal respiratory effort, No retractions, No use of accessory muscles and clear to auscultation bilaterally AUSCULTATION: clear to auscultation bilaterally Cardio: COMMON NORMALS: No murmurs present (Cardio) RATE: tachycardic RHYTHM: abnormal rhythm irregularly irregular GI: COMMON NORMALS: Normal to inspection, nondistended, normoactive bowel sounds present, Soft to palpation, non-tender and no masses PALPATION: Yes Soft to palpation Extremity: COMMON NORMALS: normal to inspection and full ROM Neuro: COMMON NORMALS: patient oriented x3, moves all extremities and no focal motor deficits CRANIAL NERVES: Yes CN normal except as noted MOTOR EXAM: 5/5 motor strength present throughout Psych: COMMON NORMALS: mental status grossly normal, Normal thought process present and cooperative THOUGHT PROCESS: Normal thought process present Skin: COMMON NORMALS: no rashes or lesions noted and no wounds GENERAL SKIN EXAM: no rashes or lesions noted Course Vital Signs: Vital signs: Vital Signs Temperature 97.7 F 11/19/21 16:45 Pulse Rate 83 11/19/21 16:45 Respiratory Rate 16 11/19/21 16:45 Blood Pressure 128/66 11/19/21 16:45 Pulse Oximetry 94 11/19/21 16:45 MDM - Weakness Medical Decision Making Patient presents with A. fib with RVR along with hypotension patient has no history of A. fib but did start him on amiodarone due to his hypotension his heart rate and blood pressure here improved did give him IV fluids as well CT shows no signs of pneumonia or pulmonary embolism. Will admit to the ICU at this time Lab Data : 11/19/21 04:24 11/19/21 04:24 Radiology Impressions Chest X-Ray 11/19/21 04:19 IMPRESSION: No acute findings. Knee X-Ray 11/19/21 04:19 IMPRESSION: No acute findings. Chest CTA 11/19/21 05:28 IMPRESSION: 1. No large central or proximal segmental pulmonary embolus. Evaluation of the more distal vessels is limited by significant motion artifact and therefore more distal emboli cannot be excluded. 2. Small to moderate pericardial effusion. 3. Slightly nodular contour of the liver, correlate with history of cirrhosis. Laboratory Results WBC 11.8 10^3/uL (4.0-10.0) H 11/19/21 04:24 RBC 4.50 10^6/uL (4.1-5.3) 11/19/21 04:24 Hgb 11.3 g/dL (11.7-16.6) L 11/19/21 04:24 Hct 36.3 % (42.0-52.0) L 11/19/21 04:24 MCV 80.7 fl (80-94) 11/19/21 04:24 MCH 25.1 pg (28.0-34.0) L 11/19/21 04:24 MCHC 31.1 g/dL (30.0-36.0) 11/19/21 04:24 RDW 15.2 % (12.1-15.1) H 11/19/21 04:24 Plt Count 146 10^3/cmm (130-400) 11/19/21 04:24 MPV 10.3 fL (7.4-10.4) 11/19/21 04:24 Neut % (Auto) 80.7 % 11/19/21 04:24 Lymph % (Auto) 11.0 % 11/19/21 04:24 Mcnairy % (Auto) 6.1 % 11/19/21 04:24 Eos % (Auto) 1.6 % 11/19/21 04:24 Baso % (Auto) 0.3 % 11/19/21 04:24 Neut # (Auto) 9.50 10^3/uL (1.8-7.7) H 11/19/21 04:24 Lymph # (Auto) 1.3 10^3/uL (0.8-4.8) 11/19/21 04:24 Mcnairy # (Auto) 0.7 10^3/uL (0.2-0.9) 11/19/21 04:24 Eos # (Auto) 0.2 10^3/uL (0.0-0.8) 11/19/21 04:24 Baso # (Auto) 0.0 10^3/uL (0.0-0.1) 11/19/21 04:24 Nucleated RBC % (auto) 0 % 11/19/21 04:24 Nucleated RBCs # 0.0 /100WBC 11/19/21 04:24 Sodium 132 mmol/L (136-145) L 11/19/21 04:24 Potassium 3.7 mmol/L (3.5-5.1) 11/19/21 04:24 Chloride 95 mmol/L (98-107) L 11/19/21 04:24 Carbon Dioxide 20 mmol/L (22-29) L 11/19/21 04:24 Anion Gap 20.7 (5-19) H 11/19/21 04:24 BUN 25 mg/dL (6-20) H 11/19/21 04:24 Creatinine 1.3 mg/dL (0.7-1.2) H 11/19/21 04:24 GFR Calculation 56.7 mL/min (90-130) L 11/19/21 04:24 Glucose 255 mg/dL (65-115) H 11/19/21 04:24 Calculated Osmolality 287 mOsm/kg (285-295) 11/19/21 04:24 Calcium 8.8 mg/dL (8.5-10.5) 11/19/21 04:24 Phosphorus 3.9 mg/dL (2.5-4.5) 11/19/21 04:24 Magnesium 2.2 mg/dL (1.7-2.3) 11/19/21 04:24 Iron 17 ug/dL (59-158) L 11/19/21 04:24 TIBC 323 mcg/dl 11/19/21 04:24 % Saturation 5.2 % (20-50) L 11/19/21 04:24 Unsat Iron Binding 306 ug/dL (112-347) 11/19/21 04:24 Ferritin 85 ng/mL (30-400) 11/19/21 04:24 Total Bilirubin 0.5 mg/dL (0.15-1.2) 11/19/21 04:24 AST 29 U/L (0-40) 11/19/21 04:24 ALT 40 U/L (0-41) 11/19/21 04:24 Alkaline Phosphatase 54 IU/L (40-130) 11/19/21 04:24 Troponin T Baseline 35 ng/L (0-15) H 11/19/21 04:24 Troponin T 120 Minute 48.32 ng/L (0-15) H 11/19/21 06:59 Delta Troponin T 13.32 ABS# (0-10) H* 11/19/21 06:59 C-Reactive Protein 134.4 mg/L (0.0-4.9) H 11/19/21 04:24 NT-Pro-B Natriuret Pep 422 pg/mL (0-125) H 11/19/21 04:24 Total Protein 6.4 g/dL (6.6-8.7) L 11/19/21 04:24 Albumin 3.9 g/dL (3.5-5.2) 11/19/21 04:24 Globulin 2.5 g/dL (1.3-4.6) 11/19/21 04:24 Vitamin B12 494 pg/mL (232-1245) 11/19/21 04:24 25-OH Vitamin D Total 25 ng/mL (30-100) L 11/19/21 04:24 Folate 8.2 ng/mL (4.5-32.2) 11/19/21 06:59 Procalcitonin 0.12 ng/mL (0-0.5) 11/19/21 04:24 TSH 4.13 uIU/mL (0.27-4.20) 11/19/21 04:24 Free T4 1.02 ng/dL (0.82-1.77) 11/19/21 04:24 EKG Data EKG 1: I personally reviewed and interpreted this EKG as follows: EKG interpretation date: 11/19/21 EKG interpretation time: 04:21 Interpretation: afib rvr hr [address] or t wave abnormalities qrs 103 qtc 418 Critical Care Time Critical Care Time: Critical Care Time: Yes Total Critical Care Time: 50 Attestation: The high probability of a clinically significant, sudden or life threatening deterioration of the patient's CV, RESP system(s) required my full and direct attention, intervention and personal management. The critical care time is as shown. This time is in addition to time spent performing any reported procedures but includes the following: [x] Data and vital sign review and interpretation [x] Patient assessment, examination and intervention [x] Documentation [x] Medication orders and management Discharge Plan Discharge Patient Disposition: Admitted As Inpatient Admit Provider: Carlos Chiu Clinical Impression: Atrial fibrillation with RVR, Weakness, Hypoxia Condition: Stable Coding Level of Care Code ED Director Of Music for Chg Fwd Exam Comprehensive
[2021-11-19 04:30] LABS: Basophils % 0.3 %; Eosinophils # 0.2 10^3/uL (0.0-0.8); Eosinophils % 1.6 %; Hematocrit 36.3 % (42.0-52.0); Hemoglobin 11.3 g/dL (11.7-16.6); Lymphocytes # 1.3 10^3/uL (0.8-4.8); Mean Corpuscular HGB Conc 31.1 g/dL (30.0-36.0); Mean Corpuscular Hemoglobin 25.1 pg (28.0-34.0); Mean Corpuscular Volume 80.7 fl (80-94); Mean Platelet Volume 10.3 fL (7.4-10.4); Monocytes # 0.7 10^3/uL (0.2-0.9); Monocytes % 6.1 %; Neutrophils % 80.7 %; Nucleated Red Blood Cells % 0 %; Platelet Count 146 10^3/cmm (130-400); Red Cell Distribution Width 15.2 % (12.1-15.1); White Blood Count 11.8 10^3/uL (4.0-10.0)
[2021-11-19 04:49] LABS: Troponin(5th) Baseline 35 ng/L (0-15)
[2021-11-19] MEDS: aspirin 81 mg Chew Tablet 324 MG PO (04:53)
[2021-11-19 04:55] LABS: Alanine Aminotransferase 40 U/L (0-41); Albumin Level 3.9 g/dL (3.5-5.2); Alkaline Phosphatase 54 IU/L (40-130); Anion Gap 20.7 (5-19); Aspartate Amino Transferase 29 U/L (0-40); Blood Urea Nitrogen 25 mg/dL (6-20); Calcium 8.8 mg/dL (8.5-10.5); Carbon Dioxide 20 mmol/L (22-29); Chloride 95 mmol/L (98-107); Globulin 2.5 g/dL (1.3-4.6); Glomerular Filtration Rate 56.7 mL/min (90-130); Glucose 255 mg/dL (65-115); NT Pro B Type Natriuretic Pept 422 pg/mL (0-125); Osmolality Calculated 287 mOsm/kg (285-295); Potassium 3.7 mmol/L (3.5-5.1); Sodium 132 mmol/L (136-145); Total Bilirubin 0.5 mg/dL (0.15-1.2); Total Protein 6.4 g/dL (6.6-8.7)
[2021-11-19] MEDS: ondansetron 2 mg/ML SDV 2 mL 4 MG IVP (05:11)
--- NOTE | 2021-11-19 05:28 | CTR_ITS ---
PROCEDURE INFORMATION: Exam: CTA Chest With Contrast Exam date and time: 11/19/2021 6:13 AM Age: 56 years old Clinical indication: Shortness of breath and tachypnea; Patient HX: Tachycardic with hypotension, mild hypoxia, and elevated troponin. ; Additional info: Pe TECHNIQUE: Imaging protocol: Computed tomographic angiography of the chest with contrast. 3D rendering (Not supervised by radiologist): MIP and/or 3D reconstructed images were created by the technologist. Radiation optimization: All CT scans at this facility use at least one of these dose optimization techniques: automated exposure control; mA and/or kV adjustment per patient size (includes targeted exams where dose is matched to clinical indication); or iterative reconstruction. Contrast material: VISI 320; Contrast volume: 50 ml; Contrast route: INTRAVENOUS (IV); COMPARISON: CR (CHEST, ) 11/19/2021 4:35 AM RADIATION DOSE METRICS: Total DLP (mGy-cm): 495.91 FINDINGS: Pulmonary arteries: No large central or proximal segmental pulmonary embolus. Evaluation of the more distal vessels is limited by significant motion artifact and therefore more distal emboli cannot be excluded. Aorta: No aortic aneurysm. No aortic dissection. Lungs: Minimal patchy bibasilar opacities which may be seen with atelectasis Pleural spaces: Unremarkable. No pneumothorax. No pleural effusion. Heart: Small to moderate pericardial effusion. Mild cardiomegaly. Lymph nodes: Unremarkable. No enlarged lymph nodes. Liver: Slightly nodular contour of the liver, correlate with history of cirrhosis. Bones/joints: Unremarkable. No acute fracture. Soft tissues: Unremarkable. CT/CT angio chest PE protcl [id number] IMPRESSION: 1. No large central or proximal segmental pulmonary embolus. Evaluation of the more distal vessels is limited by significant motion artifact and therefore more distal emboli cannot be excluded. 2. Small to moderate pericardial effusion. 3. Slightly nodular contour of the liver, correlate with history of cirrhosis.
--- NOTE | 2021-11-19 05:45 | PC.NURSE ---
admitting provider at bedside speaking with patient. patient on awake overnight monitor. Patient in no obvious distress.
--- NOTE | 2021-11-19 05:54 | PM.HP ---
Providers/Chief Complaint Chief Complaint: weakness History of Present Illness The patient is a 56-year-old male who presented with chief complaint of weakness which he states start approximately 24 hours prior to hospitalization after receiving the shingles vaccine. The patient was actually seen on the evening of November 18, 2021 and discharged home but he was returned back to the emergency department due to increasing weakness and was found to be slightly hypoxic as well. The patient admits to nausea, vomiting, cough which is nonproductive in addition to generalized weakness. He denies fever, rigors, wheeze, abdominal pain, diarrhea, myalgia, chest pain, dyspnea, lightheadedness, diaphoresis, palpitations, sense of rapid heartbeat, sensation knee regular heartbeat. He denies diplopia, blurry vision, dysphasia, dysphagia, paresthesia/anesthesia/myasthenia of any part of his body. He denies peripheral edema. He did admit to dizziness. He presents for further evaluation Review of Systems General: Reports: 10 or more systems reviewed and unremarkable except in HPI and below Medications/Allergies Home Medications Medication Instructions Recorded Confirmed Last Taken Type amlodipine 10 mg tablet 10 mg PO DAILY@07/25/19 11/18/21 11/18/21 History olmesartan 40 mg tablet (Benicar) 40 mg PO DAILY@07/25/19 11/18/21 11/18/21 History omeprazole 40 mg capsule,delayed 40 mg PO DAILY@07/25/19 11/18/21 11/18/21 History release rosuvastatin 20 mg tablet (Crestor) 20 mg PO DAILY@07/25/19 11/18/21 11/17/21 History semaglutide (Ozempic) 0.5 mg SUBCUT Q7D ml 07/25/19 11/18/21 11/12/21 History acetaminophen 325 mg tablet 325 - 650 mg PO Q6H PRN 11/11/20 11/18/21 Unknown History aspirin 81 mg tablet,delayed 81 mg PO DAILY@11/11/20 11/18/21 11/18/21 History release desmopressin 0.2 mg tablet 0.1 mg PO DAILY@11/11/20 11/18/21 11/17/21 History hydrochlorothiazide 12.5 mg capsule 12.5 mg PO DAILY@11/11/20 11/18/2122 History ibuprofen 600 mg tablet 600 mg PO TID PRN 11/11/20 11/18/21 Unknown History insulin degludec 200 unit/mL (3 66 unit SUBCUT BID@11/11/20 11/18/21 11/18/21 History mL) subcutaneous pen (Tresiba FlexTouch U-200 insulin) insulin lispro 100 unit/mL See Rx Instructions .ROUTE .COMPLEX 11/11/20 11/18/21 11/18/21 History subcutaneous pen (Humalog KwikPen (U-100) Insulin) lanolin alcohols-mineral 1 applic TOPICAL DAILY@11/11/20 11/18/21 11/17/21 History oil-w.petrolatum-ceresin topical cream (Minerin Creme) loperamide 2 mg tablet (Imodium 2 mg PO TID PRN 11/11/20 11/18/21 Unknown History A-D) lurasidone 80 mg tablet (Latuda) 80 mg PO DAILY@11/11/20 11/18/21 11/17/21 History magnesium hydroxide 2,400 mg/10 mL 30 ml PO DAILY PRN 11/11/20 11/18/21 Unknown History oral suspension (Milk Of Magnesia Concentrated) menthol 1 % topical powder (Gold 1 applic TOPICAL DAILY@11/11/20 11/18/21 11/18/21 History Queen Medicated Foot) metformin 500 mg tablet,extended 1,000 mg PO BID@,11/11/20 11/18/21 11/18/21 History release 24hr metoprolol succinate 50 mg 50 mg PO DAILY@11/11/20 11/18/21 11/18/21 History tablet,extended release 24 hr miconazole nitrate 2 % topical 1 applic TOPICAL BID@,11/11/20 11/18/21 Unknown History cream (Antifungal Cream (miconazole)) oxybutynin chloride 10 mg 10 mg PO DAILY@08 11/11/20 11/18/21 11/18/21 History tablet,extended release 24 hr risperidone 1 mg tablet 1 mg PO BID@07,11/11/20 11/18/21 11/18/21 History sertraline 100 mg tablet 100 mg PO DAILY@11/11/20 11/18/21 11/18/21 History carboxymethylcellulose sodium 1 % 1 drp OPHTHALMIC (EYE) TID 11/18/21 11/18/21 11/18/21 History eye drops (Artificial Tears (carboxymethylcellulose)) empagliflozin 10 mg tablet 10 mg PO DAILY 11/18/21 11/18/21 11/18/21 History (Jardiance) glipizide 5 mg tablet 5 mg PO DAILY 11/18/21 11/18/21 11/18/21 History omega 1-zuu-mmx-fish oil 1,000 mg 1 cap PO DAILY 11/18/21 11/18/21 11/18/21 History (120 mg-180 mg) capsule (Fish Oil) white petrolatum-mineral oil 94 1 applic OPHTHALMIC (EYE) BEDTIME 11/18/21 11/18/21 11/17/21 History %-3 % eye ointment Allergies Allergy/AdvReac Type Severity Reaction Status Date / Time ziprasidone [From Geodon] Allergy Unknown Verified 11/18/21 18:55 PFSH Acute PFSH: Medical History Mild intellectual disabilities Schizoaffective disorder, bipolar type Social History Smoking and tobacco status: never smoked Vitals/I&O/Wt Last Vital Signs Temp 98.0 F 11/19/21 04:21 Pulse 141 H 11/19/21 05:42 Resp 22 H 11/19/21 05:42 BP 104/55 11/19/21 05:42 Pulse Ox 95 11/19/21 05:42 11/18/21 11/18/21 11/19/21 14:59 22:59 06:59 Intake Total 118.539 / 118.539 Balance 118.539 / 118.539 Weight last 48 hrs Weight 136.078 kg Physical Exam Narrative: General: -Alert -No acute distress -No dyspnea -No tachypnea Head: -Atraumatic -Normocephalic Eyes: -Pupils equally round and reactive to light and accommodation -Extraocular muscles intact Neurological: -Cranial nerves II-XII intact Neck: -No jugular venous distention -No thyromegaly -No cervical lymphadenopathy Heart: -Regular rate -Regular rhythm -No murmurs -No gallops -No rubs Lungs: -No wheeze -No rhonchi -No rales ? Abdomen: -Normal bowel sounds in all four quadrants -No rebound -No guarding -No tenderness Extremities: -2/4 pulse in all four extremities -No clubbing -No cyanosis -No edema -No calf tenderness present bilaterally -Negative Savanna?s sign bilaterally Musculoskeletal: -5/5 bilateral upper extremity strength -5/5 bilateral lower extremity strength -Sensorium of bilateral upper extremities are equal and intact -Sensorium of bilateral lower extremities are equal and intact ? Additional Details / Additional Findings / Exceptions / Miscellaneous: Data : 11/19/21 04:24 11/19/21 04:24 A&P Assessment and plan (1) Weakness: Status: Acute Plan generalized weakness. Uncertain etiology. The patient does have mild renal insufficiency suggestive of dehydration. Urinalysis pending. Magnesium, phosphorus, B12, folate, 25 hydroxy vitamin D level, 25 hydroxy vitamin D level pending. Hyponatremia. We will monitor sodium level intermittently. IV normal saline at 75 ML's per hour Mental retardation Schizoaffective disorder Bipolar disorder Overactive bladder Anemia, chronic. Will monitor hemoglobin level intermittently. Check serum ferritin, iron panel, fecal occult blood Diabetes. Will check fasting glucose every before meals and at bedtime and provide some slight scale GERD Hyperlipidemia Hypertension Obesity. The patient becomes regarding lifestyle modification Acute renal insufficiency. Will monitor creatinine intermittently. IV normal saline at 75 ML's per hour Hypoxia. Uncertain etiology at this time. CTA of the chest pending Atrial for ablation, new onset. Monitor patient on telemetry and checks her cardiac enzymes. Check TSH, free T4, magnesium level. Will check EKG intermittently. Echo cardiac pending. IV amiodarone drip per protocol plus IV heparin drip per protocol History of vitamin D deficiency. Currently pendin 5 hydroxy vitamin D level, 1, 25 doxy vitamin D level History of Thomas's palsy Constipation DVT Proflex is. IV heparin drip per protocol Attestations Medical Necessity Statement*: the patient's anticipated length of stay is less than 2 midnights for treatment of his generalized weakness as well as evaluation of his new onset of atrial fibrillation Coding Level of Care Code Acute Chemist Instrumentation for Heath Andres Diagnoses Weakness R53.1
--- NOTE | 2021-11-19 06:08 | USCV_ITS ---
Luisito Wilkinson Age: 56 Gender: M : 1965 Exam Date: 11/19/2021 07:44 Ordering Phys: Carlos Chiu DO Technologist: CARRIE Exam Location: [facility] Indication: atrial fibrillation in ER. No hx afib per patient. No hx cardiac intervention per patient. BP: 94 / 43 HR: 82 Rhythm: Sinus Technical Quality: Adequate with [employer] MEASUREMENTS (Male / Female) Normal Values 2D ECHO LV Diastolic Diameter PLAX 4.1 cm 4.2 - 5.9 / 3.9 - 5.3 cm LV Systolic Diameter PLAX 2.7 cm IVS Diastolic Thickness 1.6 cm 0.6 - 1.0 / 0.6 - 0.9 cm IVS Systolic Thickness 1.4 cm LVPW Diastolic Thickness 1.4 cm 0.6 - 1.0 / 0.6 - 0.9 cm LVPW Systolic Thickness 2.0 cm LVOT Diameter 2.1 cm LV Ejection Fraction 2D Teich 62.3 % LV Ejection Fraction MOD 2C 61.7 % LV Ejection Fraction 2C AL 62.5 % LA Diameter 4.0 cm LA Width 4.9 cm LA Height 5.9 cm RA Width 3.9 cm RA Height 3.6 cm Aorta at Sinotubular Diameter 3.1 cm IVC Diameter 1.7 cm M-MODE Aortic Annulus Diameter 3.7 cm LA Ao Ratio MM 1.1 MV E Point Septal Separation 0.4 cm DOPPLER AV Peak Velocity 147.0 cm/s LVOT Peak Velocity 141.0 cm/s AV Area Cont Eq vti 3.4 cm squared AV Area Cont Eq pk 3.2 cm squared MV Area PHT 3.0 cm squared Mitral E to A Ratio 1.2 MV E' Velocity 87.0 cm/s Mitral E to MV E' Ratio 15.3 Mitral E to LV E' Lateral Ratio 17.1 Mitral E to LV E' Septal Ratio 13.9 TR Peak Velocity 241.0 cm/s TR Peak Gradient 23.2 mmHg TV Peak E Velocity 69.0 cm/s Right Atrial Pressure 10.0 mmHg Pulmonary Artery Systolic Pressu 33.2 mmHg PV Peak Velocity 113.0 cm/s FINDINGS Left Ventricle Normal left ventricular size. LV systolic function is normal with EF of 60-65%. No regional wall motion abnormalities. Normal diastolic filling pattern. Right Ventricle The right ventricle is normal in size and function. Right Atrium The right atrium is normal in size. Left Atrium The left atrium is normal in size. Mitral Valve Structurally normal mitral valve without significant stenosis or prolapse. There is no mitral regurgitation. Aortic Valve Aortic valve is thickened without significant stenosis. There is no aortic regurgitation. Tricuspid Valve Structurally normal tricuspid valve without significant stenosis. Trace tricuspid regurgitation. Insufficient TR jet to calculate RVSP Pulmonic Valve Not well visualized Pericardium Small sized pericardial effusion Aorta Normal ascending aorta dimension. IVC CONCLUSIONS LV systolic function is normal with EF of 60-65% Normal diastolic function Trace tricuspid regurgitation No comparison studies are available Enrike Reed MD (Electronically Signed) Final Date: 19 Nov 2021 09:31 S
[2021-11-19] MEDS: iodixanol 320 mg/mL 100mL Btl IV (06:19)
--- NOTE | 2021-11-19 06:19 | ECG_ITS ---
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 Measurements Intervals [place] Rate: 83 P: 37 MI: 120 QRS: 83 QRSD: 110 T: 35 QT: 412 QTc: 485 Interpretive Statements SINUS RHYTHM NONSPECIFIC ST ELEVATION [0.05+ mV ST ELEVATION] Compared to ECG 11/19/2021 04:21:54 ST (T wave) deviation now present Atrial fibrillation no longer present Electronically Signed On 11-20-2021 11:49:15 CDT by Emmanuelle Thibodeaux M.D. [id number]
--- NOTE | 2021-11-19 06:54 | PC.NURSE ---
0628- Dr. Moya notified of patients rhythm change to NSR> ekg performed and shown to provider. 0630- per Dr. Hightower orders patients amiodarone held and will re-evaluate patient . patient in no obivous distress. patient on monitor technician.
[2021-11-19 07:05] LABS: 25 Hydroxy Vitamin D 25 ng/mL (30-100); Ferritin 85 ng/mL (30-400); Iron 17 ug/dL (59-158); Magnesium 2.2 mg/dL (1.7-2.3); Percent Saturation 5.2 % (20-50); Phosphorus 3.9 mg/dL (2.5-4.5); Thyroid Stimulating Hormone 4.13 uIU/mL (0.27-4.20); Total Iron Binding Capacity 323 mcg/dl; Unsaturated Iron Binding 306 ug/dL (112-347); Vitamin B12 494 pg/mL (232-1245)
[2021-11-19 07:44] LABS: Troponin 5 2HR 48.32 ng/L (0-15)
[2021-11-19 07:47] LABS: Free T4 Free Thyroxine 1.02 ng/dL (0.82-1.77)
--- NOTE | 2021-11-19 07:58 | P.PN_ITS ---
Subjective Subjective: Patient admitted this morning for generalized weakness, found to have afib with RVR. ED course complicated by hypotension. Patient evaluated in the emergency department. He remains hypotensive with IV fluids running. He endorses generalized weakness. He denies fevers, chills, chest pain, or cough. Reports he fell last night. Denies prior history of atrial fibrillation. Medications: Reviewed: Yes Vitals/I&O/Wt Last Vital Signs Temp 98.0 F 11/19/21 04:21 Pulse 81 11/19/21 06:56 Resp 19 H 11/19/21 06:56 BP 110/63 11/19/21 06:56 Pulse Ox 92 11/19/21 06:56 11/18/21 11/19/21 11/19/21 22:59 06:59 14:59 Intake Total 118.539 / 118.539 Balance 118.539 / 118.539 Weight last 48 hrs Weight 136.078 kg Physical Exam Narrative: General: Patient is awake. Appears fatigued Head: Normocephalic. Atraumatic. EOM intact. Neck: No JVD. Cardiovascular: RRR. No gallops. No murmurs. Hypotensive. Lungs: Clear to auscultation, no use of accessory muscles, no crackles or wheezes. Skin: No jaundice. Abdomen: Obese. Normal bowel sounds, abdomen soft and nontender. Genito Urinary: Genital exam not performed since complaints not related. Rectal: Rectal exam not performed since no symptoms indicated blood loss. Extremeties: No cyanosis or clubbing. Contusion on right knee. Musculoskeletal: Contusion on right knee. Neurological: Moves all 4 extremities. No myoclonus. Data : 11/19/21 04:24 11/19/21 04:24 A&P Assessment and plan (1) Atrial fibrillation with RVR: -S/P diltiazem IVP in ED -Holding home metoprolol due to hypotension -Started on IV amiodarone in ED with subsequent conversion -Start PO loading of amiodarone -Continouus telemetry monitoring -Monitor electrolytes -TFTs within normal -Discontinue heparin drip -Start apixaban -TTE pending Status: Acute (2) Hypotension: -Suspect secondary to afib with RVR but cannot rule out septic shock -Leukocytosis noted -CT imaging negative for pneumonia -Obtain inflammatory markers -Obtain urinalysis and blood cultures -Start broad spectrum antibiotics with vancomycin and Zosyn Status: Acute (3) Weakness: -2/2 a-fib with RVR -PT/OT Status: Acute (4) Hypoxia: -Suspect secondary to atrial fibrillation with rapid ventricular rate -Supplemental oxygen support for SPO2 goal of 92-96% Status: Acute (5) Acute kidney injury: -Suspect prerenal in the setting of hypotension -IV fluids -Strict I&Os -Daily weights -Avoid nephrotoxins Status: Acute (6) Metabolic acidemia: -HAGMA suspect 2/2 LOYDA -IVF fluids Status: Acute (7) Diabetes mellitus: -With hyperglycemia -Hold home glipizide -Home home metformin -SSI -Avoid hypoglycemia Status: Acute (8) Myocardial injury: -2/2 afib/rvr -Trend troponin -Telemetry monitoring Status: Acute (9) Hypertension: -Holding home anti-hypertensives due to hypotension Status: Acute (10) Hyponatremia: -Continue IV fluids Status: Acute (11) Schizoaffective disorder, bipolar type: -Continue home medications Status: Acute (12) Mild intellectual disabilities: Status: Acute Plan DVT ppx: Apixaban Attestations Medical Necessity Statement*: Patient with generalized weakness, found to have afib with RVR and hypotension requiring hospitalization with expected care to cross 2 midnights. Coding Level of Care Code Acute Associate Professor Of Economics for kristal Fwd Diagnoses Atrial fibrillation with RVR I48.91 Weakness R53.1 Hypoxia R09.02 Schizoaffective disorder, bipolar type F25.0 Mild intellectual disabilities F70 Hypertension I10 Diabetes mellitus E11.9 Hypotension I95.9 Metabolic acidemia E87.2 Acute kidney injury N17.9 Myocardial injury I5A Hyponatremia E87.1
[2021-11-19 08:01] LABS: Troponin 5 2HR Delta 13.32 ABS# (0-10)
--- NOTE | 2021-11-19 08:11 | PC.NURSE ---
PHYSICIAN NOTIFIED OF BP, ORDERS RECIEVED
[2021-11-19 08:51] LABS: Folate Level 8.2 ng/mL (4.5-32.2)
[2021-11-19 08:58] LABS: C Reactive Protein 134.4 mg/L (0.0-4.9)
[2021-11-19 09:05] LABS: Procalcitonin 0.12 ng/mL (0-0.5)
[2021-11-19] MEDS: perflutren protein-a microsphr 0.22 mg/mL SDV 3 mL IV (09:14)
[2021-11-19] MEDS: apixaban 5 mg Tablet PO ×2 (09:38→21:22)
[2021-11-19] MEDS: amiodarone 200 mg Tablet 400 MG PO ×2 (09:38→18:08)
[2021-11-19] MEDS: sodium chloride 0.9% 1,000 ML 999 ML IV (09:41)
[2021-11-19 09:57] LABS: Glucose Point of Care 271 mg/dL (70-110)
--- NOTE | 2021-11-19 10:00 | PC.NURSE ---
Received call from Merle at [facility] assisted living. Merle states she has known patient for 11 yrs. That he lives in assisted living, uses a walker, has some speech difficulty and does receive BOW MAKER MACHINE TENDER assistance for bathing. She states patient doEs not have a [facility] or [facility] power of museum exhibit technician. Merle also stated patient received a shingles vaccine yesterday at the [facility].
--- NOTE | 2021-11-19 10:19 | ECG_ITS ---
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 Measurements Intervals Wren Rate: 76 P: 18 WV: 137 QRS: 73 QRSD: 110 T: 35 QT: 410 QTc: 462 Interpretive Statements SINUS RHYTHM Compared to ECG 11/19/2021 06:24:42 ST (T wave) deviation no longer present Electronically Signed On 11-19-2021 22:08:19 CDT by Emmanuelle Thibodeaux M.D. [id number]
[2021-11-19 10:30] LABS: Influenza A by IFA Negative (Negative); Influenza B by IFA Negative (Negative)
[2021-11-19 10:31] LABS: SARS Covid-2 Antigen Negative (Negative)
[2021-11-19 11:04] LABS: Lactate (Lactic Acid level) 1.1 mmol/L (0.5-2.2)
[2021-11-19 11:05] LABS: Troponin 5 6HR 40.48 ng/L (0-15)
[2021-11-19 11:07] LABS: Troponin 5 6HR Delta 5.48 ng/L (0-12)
[2021-11-19 11:44] LABS: Glucose Point of Care 152 mg/dL (70-110)
[2021-11-19] MEDS: piperacillin-tazobactam 3.375 GM in sodium chloride 0.9% (plus) 50 ML IV ×2 (12:33→18:08)
[2021-11-19] MEDS: insulin lispro 100 unit/1 mL SUBCUT (13:04)
--- NOTE | 2021-11-19 14:23 | PC.NURSE ---
Patient incontinent of urine. Disposable underwear was soaked. PATIENT ASSISTED TO STAND ON SIDE OF BED, PT WASHED AND NEW DISPOSABLE UNDERWEAR PLACED. bED LINENS CHANGED. 2 PERSON ASSIST WITH WALKER IN PLACE.
[2021-11-19 17:39] LABS: Glucose Point of Care 122 mg/dL (70-110)
[2021-11-19] MEDS: sennosides-docusate Tablet 2 TAB PO (18:07)
--- NOTE | 2021-11-19 18:32 | PC.NURSE ---
Shift Summary: uneventful shift. Patient has rested in bed most of the day, but was standing at bedside with OT and NUrsing on 2 occasions.
[2021-11-19 20:58] LABS: Glucose Point of Care 133 mg/dL (70-110)
[2021-11-20] VITALS (58 sets, daily range): BP systolic 124–167; BP diastolic 57–89; PULSE 78–106; RESP 16–26; TEMP 36.4–37.3; O2SAT 86–96
[2021-11-20] MEDS: piperacillin-tazobactam 3.375 GM in sodium chloride 0.9% (plus) 50 ML IV ×3 (02:37→19:30)
[2021-11-20 05:52] LABS: Basophils % 0.3 %; Eosinophils # 0.4 10^3/uL (0.0-0.8); Eosinophils % 3.7 %; Hemoglobin 10.9 g/dL (11.7-16.6); Lymphocytes # 1.9 10^3/uL (0.8-4.8); Lymphocytes % 19.8 %; Mean Corpuscular HGB Conc 29.5 g/dL (30.0-36.0); Mean Corpuscular Hemoglobin 24.9 pg (28.0-34.0); Mean Corpuscular Volume 84.5 fl (80-94); Mean Platelet Volume 10.9 fL (7.4-10.4); Monocytes # 0.5 10^3/uL (0.2-0.9); Monocytes % 5.6 %; Neutrophils # 6.81 10^3/uL (1.8-7.7); Neutrophils % 70.2 %; Nucleated Red Blood Cells % 0 %; Platelet Count 145 10^3/cmm (130-400); Red Blood Count 4.38 10^6/uL (4.1-5.3); Red Cell Distribution Width 15.5 % (12.1-15.1); White Blood Count 9.7 10^3/uL (4.0-10.0)
[2021-11-20 06:04] LABS: Blood Urea Nitrogen 16 mg/dL (6-20); Calcium 8.7 mg/dL (8.5-10.5); Carbon Dioxide 24 mmol/L (22-29); Chloride 101 mmol/L (98-107); Glomerular Filtration Rate 115.8 mL/min (90-130); Glucose 134 mg/dL (65-115); Osmolality Calculated 287 mOsm/kg (285-295); Sodium 137 mmol/L (136-145)
--- NOTE | 2021-11-20 06:12 | PC.NURSE ---
Patient rested quietly with no complaints of pain or nausea. He was able to sleep well. Did need 6L of O2 to keep saturations above 90% due to sleep apnea. Patient was incontinent of urine so cleaned him up and changed linens.
[2021-11-20 07:27] LABS: Glucose Point of Care 140 mg/dL (70-110)
[2021-11-20] MEDS: polyethylene glycol 3350 Pkt 17 gm PO (08:21)
[2021-11-20] MEDS: sennosides-docusate Tablet 2 TAB PO ×2 (08:21→18:00)
[2021-11-20] MEDS: amiodarone 200 mg Tablet 400 MG PO ×2 (08:21→18:00)
[2021-11-20] MEDS: apixaban 5 mg Tablet PO ×2 (08:27→21:49)
--- NOTE | 2021-11-20 10:52 | P.PN_ITS ---
Subjective Subjective: Patient endorses continued generalized malaise and fatigue. Denies chest pain, shortness of breath, nausea, emesis, or abdominal pains. Medications: Reviewed: Yes Vitals/I&O/Wt Last Vital Signs Temp 99.1 F 11/20/21 07:30 Pulse 84 11/20/21 08:30 Resp 21 H 11/20/21 08:30 BP 147/78 11/20/21 08:30 Pulse Ox 90 11/20/21 08:30 11/19/21 11/20/21 11/20/21 22:59 06:59 14:59 Intake Total 1070 / 1320 530 / 1850 604 / 604 Balance 1070 / 1320 530 / 1850 604 / 604 Weight last 48 hrs Weight 136.078 kg Physical Exam Narrative: General: Patient is awake and alert. Appears fatigued. Head: Normocephalic. Atraumatic. EOM intact. Neck: No JVD. Cardiovascular: RRR. No gallops. No murmurs. Lungs: Clear to auscultation, no use of accessory muscles, no crackles or wheezes. Skin: No jaundice. No rashes. Abdomen: Normal bowel sounds, abdomen soft and nontender. Genito Urinary: Genital exam not performed since complaints not related. Rectal: Rectal exam not performed since no symptoms indicated blood loss. Extremeties: No cyanosis or clubbing. Musculoskeletal: No swollen or erythematous joints. Neurological: Moves all 4 extremities. No myoclonus. Data : 11/20/21 04:36 11/20/21 04:36 Micro: Microbiology 11/19/21 10:11 Blood Culture - Preliminary Blood NEGATIVE TO DATE 11/19/21 10:11 Blood Culture - Preliminary Blood NEGATIVE TO DATE A&P Assessment and plan (1) Atrial fibrillation with RVR: -New onset -TTE reviewed, no acute findings, preserved ejection fraction -Continue holding metoprolol due to soft pressures -Continue amiodarone p.o. loading -Monitor electrolytes -Risk and benefits of anticoagulation discussed with patient -Continue apixaban -Continuous telemetry monitoring Status: Acute (2) Hypotension: -Secondary to A. fib with RVR and suspected sepsis -Patient unable to provide urine sample -Continue broad-spectrum antibiotics, plan to narrow for 48 hours if cultures remain negative Status: Acute (3) Weakness: -He remains diffusely weak and debilitated -PT/OT consultation Status: Acute (4) Hypoxia: -Supplemental oxygen support for SPO2 goal of 90 to 96% Status: Acute (5) Acute kidney injury: -Resolved, creatinine back to baseline -Avoid nephrotoxins Status: Acute (6) Metabolic acidemia: -Resolved Status: Acute (7) Diabetes mellitus: -Hold home glipizide and metformin -SSI -Avoid hypoglycemia Status: Acute (8) Mild intellectual disabilities: - Current mentation is likely baseline Status: Acute (9) Schizoaffective disorder, bipolar type: -Restart home medications Status: Acute (10) Chest pain: -Resolved Status: Acute (11) Hypertension: -Holding antihypertensives due to hypotension Status: Acute (12) Hyperlipidemia: Status: Acute (13) Hyponatremia: -Resolved Status: Acute (14) Myocardial injury: -Telemetry monitoring Status: Acute Plan DVT ppx: Apixaban Attestations Medical Necessity Statement*: Patient improving but still requiring IV antibiotics and telemetry monitoring as well as physical and occupational therapies requiring ongoing hospitalization. Coding Level of Care Code Acute Piggery Worker for g Fwd Diagnoses Atrial fibrillation with RVR I48.91 Hypotension I95.9 Weakness R53.1 Hypoxia R09.02 Acute kidney injury N17.9 Metabolic acidemia E87.2 Diabetes mellitus E11.9 Mild intellectual disabilities F70 Schizoaffective disorder, bipolar type F25.0 Chest pain R07.9 Hypertension I10 Hyperlipidemia E78.5 Hyponatremia E87.1 Myocardial injury I5A
[2021-11-20 11:10] LABS: Glucose Point of Care 189 mg/dL (70-110)
[2021-11-20] MEDS: insulin lispro 100 unit/1 mL SUBCUT (11:31)
[2021-11-20] MEDS: ondansetron 2 mg/ML SDV 2 mL 4 MG IVP ×2 (13:29→21:49)
[2021-11-20 16:41] LABS: Glucose Point of Care 137 mg/dL (70-110)
--- NOTE | 2021-11-20 18:39 | PC.NURSE ---
Patient just arrived to floor via bed from ICU, no c/o pain, room clean and clutter free with call light in reach. Will give report to nurse at bedside.
[2021-11-20 21:05] LABS: Vancomycin Trough 6.8 ug/mL (10-15)
[2021-11-20 21:42] LABS: Glucose Point of Care 129 mg/dL (70-110)
[2021-11-20] MEDS: risperiDONE 1 mg Tablet PO (21:49)
--- NOTE | 2021-11-20 21:52 | PC.PHAR ---
Vancomycin trough on dosage of 1500mg IVPB every 12 hours is 6.8 before the fourth dose. Dosage is increased to 1500mg IVPB every 8 hours with another trough to be obtained before the 4th dose at this level.
--- NOTE | 2021-11-20 23:03 | PC.NURSE ---
Patient having persistent nausea and frequent episodes of emesis. Informed Dr Chiu of no relief with Zofran and received telephone orders for zofran to be changed to every 4 hours prn and phenergan 25mg IM q6h PRN for n/v. RBVO
[2021-11-20] MEDS: promethazine 25 mg/mL SDV 1 mL IM (23:41)
[2021-11-21] VITALS (11 sets, daily range): BP systolic 124–159; BP diastolic 66–74; PULSE 71–84; RESP 16–20; TEMP 36.6–37.4; O2SAT 91–97
[2021-11-21] MEDS: piperacillin-tazobactam 3.375 GM in sodium chloride 0.9% (plus) 50 ML IV (02:25)
[2021-11-21 04:35] LABS: Basophils % 0.2 %; Eosinophils % 0.4 %; Hematocrit 38.3 % (42.0-52.0); Hemoglobin 11.6 g/dL (11.7-16.6); Lymphocytes # 1.4 10^3/uL (0.8-4.8); Lymphocytes % 12.6 %; Mean Corpuscular HGB Conc 30.3 g/dL (30.0-36.0); Mean Corpuscular Hemoglobin 25.1 pg (28.0-34.0); Mean Corpuscular Volume 82.7 fl (80-94); Mean Platelet Volume 10.3 fL (7.4-10.4); Monocytes # 0.6 10^3/uL (0.2-0.9); Monocytes % 5.7 %; Neutrophils # 8.69 10^3/uL (1.8-7.7); Neutrophils % 80.5 %; Nucleated Red Blood Cells % 0 %; Platelet Count 166 10^3/cmm (130-400); Red Blood Count 4.63 10^6/uL (4.1-5.3); Red Cell Distribution Width 15.5 % (12.1-15.1); White Blood Count 10.8 10^3/uL (4.0-10.0)
[2021-11-21 05:02] LABS: Albumin Level 3.8 g/dL (3.5-5.2); Anion Gap 16.4 (5-19); Blood Urea Nitrogen 23 mg/dL (6-20); Calcium 9.2 mg/dL (8.5-10.5); Carbon Dioxide 25 mmol/L (22-29); Chloride 102 mmol/L (98-107); Glomerular Filtration Rate 115.8 mL/min (90-130); Glucose 157 mg/dL (65-115); Phosphorus 3.6 mg/dL (2.5-4.5); Potassium 4.4 mmol/L (3.5-5.1); Sodium 139 mmol/L (136-145)
[2021-11-21] MEDS: aspirin 81 mg EC Tablet PO (06:15)
[2021-11-21] MEDS: sertraline 100 mg Tablet PO (06:15)
[2021-11-21] MEDS: risperiDONE 1 mg Tablet PO ×2 (06:15→20:31)
[2021-11-21] MEDS: lurasidone 80 mg Tablet PO (06:15)
[2021-11-21 06:42] LABS: Glucose Point of Care 170 mg/dL (70-110)
--- NOTE | 2021-11-21 08:10 | PC.NURSE ---
Patient back in atrial fib. Rate 130-140's Dr. Conley contacted. Order for metoprolol. Patient converted back to NSR at 0840.
[2021-11-21] MEDS: levoFLOXacin 750 mg Tablet PO (08:18)
[2021-11-21] MEDS: sennosides-docusate Tablet 2 TAB PO ×2 (08:19→18:31)
[2021-11-21] MEDS: apixaban 5 mg Tablet PO ×2 (08:19→20:30)
[2021-11-21] MEDS: amiodarone 200 mg Tablet 400 MG PO ×2 (08:19→18:30)
[2021-11-21] MEDS: insulin lispro 100 unit/1 mL SUBCUT ×4 (08:22→21:50)
[2021-11-21] MEDS: metoprolol tartrate 50 mg Tablet PO ×2 (08:37→20:31)
--- NOTE | 2021-11-21 08:47 | P.PN_ITS ---
Subjective Subjective: Patient reports continued generalized malaise and fatigue. He went back into atrial fibrillation with rapid ventricular rate this morning. He denies fevers, chills, chest pain, or headache. Medications: Reviewed: Yes Vitals/I&O/Wt Last Vital Signs Temp 98.3 F 11/21/21 08:03 Pulse 74 11/21/21 08:03 Resp 17 11/21/21 08:03 BP 142/69 11/21/21 08:03 Pulse Ox 91 11/21/21 08:03 11/20/21 11/21/21 11/21/21 22:59 06:59 14:59 Intake Total 1220 / 2354 640 / 2994 Output Total 300 / 301 100 / 401 Balance 920 / 2053 540 / 2593 Physical Exam Narrative: General: Patient is drowsy but awakens when stimulated. Head:? Normocephalic. Atraumatic. EOM intact. Neck: No JVD. Cardiovascular: RRR. No gallops. No murmurs. Normal rate. Lungs: Clear to auscultation, no use of accessory muscles, no crackles or wheeze s. Skin: No jaundice. No rashes. Abdomen: Obese. Normal bowel sounds, abdomen soft and nontender. Genito Urinary: Genital exam not performed since complaints not related. Rectal: Rectal exam not performed since no symptoms indicated blood loss. Extremeties: No cyanosis or clubbing. Musculoskeletal: No swollen or erythematous joints. Neurological: Moves all 4 extremities. No myoclonus. Data : 11/21/21 03:27 11/21/21 03:27 Micro: Microbiology 11/19/21 10:11 Blood Culture - Preliminary Blood NEGATIVE TO DATE 11/19/21 10:11 Blood Culture - Preliminary Blood NEGATIVE TO DATE A&P Assessment and plan (1) Atrial fibrillation with RVR: -New onset -Initially converted with amiodarone, but now back in a-fib w/ RVR this morning -TTE w/ no acute findings, preserved ejection fraction -Start metoprolol tartrate 50mg BID, may need further adjusting depending on his response -Continue amiodarone p.o. loading -Monitor electrolytes -Continue apixaban -Continuous telemetry monitoring Status: Acute (2) Sepsis: -Hypotension has resolved with broad spectrum antibiotics -Blood cultures remain no growth to date -Unfortunately urine could not be collected, little utility in obtaining sample now -Discontinue vancomycin and Zosyn -Start levofloxacin Status: Acute (3) Weakness: -Continue PT/OT -Anticipate discharge back to SNF when HR improves Status: Acute (4) Hypoxia: -2/2 afib w/ RVR -Suspected sleep apnea -Would benefit from outpatient sleep study Status: Acute (5) Diabetes mellitus: -SSI Status: Acute (6) Hypertension: -Blood pressure has improved -Starting metoprolol as above Status: Acute (7) Hyperlipidemia: Status: Acute (8) Schizoaffective disorder, bipolar type: -Continue home medications Status: Acute (9) Mild intellectual disabilities: -Suspect current mentation is baseline Status: Acute Plan DVT ppx: Apixaban Attestations Medical Necessity Statement*: Patient converted back into atrial fibrillation with rapid ventricular rate this morning and therefore unsafe to discharge until heart rate stable requiring ongoing hospitalization. Coding Level of Care Code Acute Post Hole Digger for Heath Fwd Diagnoses Atrial fibrillation with RVR I48.91 Sepsis A41.9 Weakness R53.1 Hypoxia R09.02 Diabetes mellitus E11.9 Hyperlipidemia E78.5 Hypertension I10 Schizoaffective disorder, bipolar type F25.0 Mild intellectual disabilities F70
[2021-11-21 11:45] LABS: Glucose Point of Care 187 mg/dL (70-110)
[2021-11-21 17:14] LABS: Glucose Point of Care 202 mg/dL (70-110)
[2021-11-21 20:52] LABS: Glucose Point of Care 229 mg/dL (70-110)
[2021-11-21 21:26] LABS: Vancomycin Trough 7.2 ug/mL (10-15)
[2021-11-22] VITALS (12 sets, daily range): BP systolic 119–145; BP diastolic 59–76; PULSE 70–90; RESP 13–19; TEMP 36.8–37.2; O2SAT 91–97
[2021-11-22 05:05] LABS: Basophils % 0.4 %; Eosinophils # 0.5 10^3/uL (0.0-0.8); Eosinophils % 4.7 %; Hematocrit 37.9 % (42.0-52.0); Hemoglobin 11.3 g/dL (11.7-16.6); Lymphocytes # 2.1 10^3/uL (0.8-4.8); Lymphocytes % 20.6 %; Mean Corpuscular HGB Conc 29.8 g/dL (30.0-36.0); Mean Corpuscular Hemoglobin 24.8 pg (28.0-34.0); Mean Corpuscular Volume 83.1 fl (80-94); Mean Platelet Volume 9.9 fL (7.4-10.4); Monocytes # 0.6 10^3/uL (0.2-0.9); Monocytes % 5.9 %; Neutrophils # 6.82 10^3/uL (1.8-7.7); Neutrophils % 67.8 %; Nucleated Red Blood Cells % 0 %; Platelet Count 179 10^3/cmm (130-400); Red Blood Count 4.56 10^6/uL (4.1-5.3); Red Cell Distribution Width 15.4 % (12.1-15.1); White Blood Count 10.1 10^3/uL (4.0-10.0)
[2021-11-22 05:25] LABS: Albumin Level 3.3 g/dL (3.5-5.2); Blood Urea Nitrogen 22 mg/dL (6-20); C Reactive Protein 65.3 mg/L (0.0-4.9); Calcium 9.1 mg/dL (8.5-10.5); Carbon Dioxide 28 mmol/L (22-29); Chloride 98 mmol/L (98-107); Glomerular Filtration Rate 138.4 mL/min (90-130); Glucose 172 mg/dL (65-115); Sodium 134 mmol/L (136-145)
[2021-11-22 06:14] LABS: Glucose Point of Care 163 mg/dL (70-110)
[2021-11-22] MEDS: risperiDONE 1 mg Tablet PO ×2 (06:21→19:30)
[2021-11-22] MEDS: levoFLOXacin 750 mg Tablet PO (06:21)
[2021-11-22] MEDS: sertraline 100 mg Tablet PO (06:21)
[2021-11-22] MEDS: aspirin 81 mg EC Tablet PO (06:21)
--- NOTE | 2021-11-22 07:58 | P.PN_ITS ---
Subjective Subjective: Patient endorses generalized fatigue and weakness. Denies chest pain, palpitations, fevers, or chills. Medications: Reviewed: Yes Vitals/I&O/Wt Last Vital Signs Temp 98.2 F 11/22/21 07:39 Pulse 73 11/22/21 07:39 Resp 14 11/22/21 07:39 BP 134/73 11/22/21 07:39 Pulse Ox 96 11/22/21 07:39 11/21/21 11/22/21 11/22/21 22:59 06:59 14:59 Intake Total 1400 / 1880 1380 / 3260 Balance 1400 / 1880 1380 / 3260 Physical Exam Narrative: General: Patient is awake and alert. Head:? Normocephalic. Atraumatic. EOM intact. Neck: No JVD. Cardiovascular: RRR. No gallops. No murmurs. Normal rate. Lungs: Clear to auscultation, no use of accessory muscles, no crackles or wheezes. Non-labored. Skin: No jaundice. No rashes. Abdomen: Obese. Normal bowel sounds, abdomen soft and nontender. Extremeties: No cyanosis or clubbing. Musculoskeletal: No swollen or erythematous joints. Neurological: Moves all 4 extremities. No myoclonus. Data : 11/22/21 04:33 11/22/21 04:33 A&P Assessment and plan (1) Atrial fibrillation with RVR: -Newly diagnosed on admission -Heart rate has improved, RVR resolved -TTE w/ no acute findings, preserved ejection fraction -Continue metoprolol tartrate 50mg BID -Continue amiodarone p.o. loading -Continue apixaban -Continuous telemetry monitoring Status: Acute (2) Sepsis: -BCx w/ NGTD -CRP markedly downtrended with IV antibiotics -Continue emperic treatment w/ Levaquin Status: Acute (3) Weakness: -Remains weak -Continue PT/OT -Reportedly cannot return to [facility], now requires SNF placement, awaiting authorization Status: Acute (4) Hypoxia: -With suspected sleep apnea -Would benefit from outpatient sleep study Status: Acute (5) Diabetes mellitus: -SSI Status: Acute (6) Hyperlipidemia: Status: Acute (7) Hypertension: -Continue metoprolol -Monitor BP closely Status: Acute (8) Schizoaffective disorder, bipolar type: -Continue home meds Status: Acute (9) Mild intellectual disabilities: -Mentation at baseline Status: Acute (10) Normocytic anemia: Status: Acute Plan DVT ppx: Apixaban Attestations Medical Necessity Statement*: Patient no longer candidate for [facility], requires SNF placement, however insurance authorization has not approved yet requiring him to remain hospitalized due to no safe discharge plan. Coding Level of Care Code Acute Infantry Unit Leader for [facility] Fwd Diagnoses Atrial fibrillation with RVR I48.91 Sepsis A41.9 Weakness R53.1 Hypoxia R09.02 Diabetes mellitus E11.9 Hyperlipidemia E78.5 Hypertension I10 Schizoaffective disorder, bipolar type F25.0 Mild intellectual disabilities F70 Normocytic anemia D64.9
[2021-11-22] MEDS: polyethylene glycol 3350 Pkt 17 gm PO (08:14)
[2021-11-22] MEDS: apixaban 5 mg Tablet PO ×2 (08:15→19:30)
[2021-11-22] MEDS: sennosides-docusate Tablet 2 TAB PO ×2 (08:15→17:30)
[2021-11-22] MEDS: insulin lispro 100 unit/1 mL SUBCUT ×4 (08:17→21:00)
[2021-11-22] MEDS: amiodarone 200 mg Tablet 400 MG PO ×2 (08:17→17:30)
[2021-11-22] MEDS: metoprolol tartrate 50 mg Tablet PO ×2 (08:18→19:30)
[2021-11-22] MEDS: lurasidone 80 mg Tablet PO (09:24)
--- NOTE | 2021-11-22 10:57 | PC.SOCIAL ---
IMM Update pg 2 of IMM updated and reviewed w/ patient. Copy provided and Copy in chart updated.
[2021-11-22 11:52] LABS: Glucose Point of Care 244 mg/dL (70-110)
[2021-11-22 17:18] LABS: Glucose Point of Care 236 mg/dL (70-110)
[2021-11-22 20:21] LABS: Glucose Point of Care 249 mg/dL (70-110)
[2021-11-23] VITALS (9 sets, daily range): BP systolic 120–139; BP diastolic 61–78; PULSE 62–77; RESP 13–19; TEMP 36.6–36.9; O2SAT 93–97
[2021-11-23 06:39] LABS: Glucose Point of Care 182 mg/dL (70-110)
[2021-11-23] MEDS: aspirin 81 mg EC Tablet PO (06:45)
[2021-11-23] MEDS: levoFLOXacin 750 mg Tablet PO (06:45)
[2021-11-23] MEDS: sertraline 100 mg Tablet PO (06:45)
[2021-11-23] MEDS: risperiDONE 1 mg Tablet PO ×2 (06:45→20:08)
[2021-11-23] MEDS: polyethylene glycol 3350 Pkt 17 gm PO (08:36)
[2021-11-23] MEDS: insulin lispro 100 unit/1 mL SUBCUT ×4 (08:36→22:11)
[2021-11-23] MEDS: sennosides-docusate Tablet 2 TAB PO ×2 (08:37→18:30)
[2021-11-23] MEDS: amiodarone 200 mg Tablet 400 MG PO ×2 (08:37→18:30)
[2021-11-23] MEDS: apixaban 5 mg Tablet PO ×2 (08:37→20:08)
[2021-11-23] MEDS: metoprolol tartrate 50 mg Tablet PO ×2 (08:37→20:08)
[2021-11-23] MEDS: lurasidone 80 mg Tablet PO (08:39)
--- NOTE | 2021-11-23 09:34 | PM.PN ---
Subjective Subjective: Patient denies any new complaints. Denies chest pain, shortness of breath, chills, fevers, nausea or vomiting. Medications: Reviewed: Yes Vitals/I&O/Wt Last Vital Signs Temp 98.3 F 11/23/21 08:00 Pulse 70 11/23/21 08:00 Resp 13 11/23/21 08:00 BP 124/61 11/23/21 08:00 Pulse Ox 93 11/23/21 08:00 11/22/21 11/23/21 11/23/21 22:59 06:59 14:59 Intake Total 240 / 440 150 / 590 Balance 240 / 440 150 / 590 Physical Exam Narrative: General: Patient is awake and alert. Head:? Normocephalic. Atraumatic. EOM intact. Neck: No JVD. Cardiovascular: RRR. No gallops. No murmurs. Normal rate. Lungs: Clear to auscultation. Non-labored. On nasal canula. Skin: No jaundice. No rashes. Abdomen: Obese. Normal bowel sounds, abdomen soft and nontender. Extremeties: No cyanosis or clubbing. Musculoskeletal: No swollen or erythematous joints. Neurological: Moves all 4 extremities. No myoclonus. Data : 11/22/21 04:33 11/22/21 04:33 A&P Assessment and plan (1) Atrial fibrillation with RVR: -Newly diagnosed on admission -Converted to SR -TTE w/ no acute findings, preserved ejection fraction -Continue metoprolol tartrate 50mg BID -Continue amiodarone p.o. loading with goal of 10gm load then maintenance dosing -Continue apixaban -Continuous telemetry monitoring Status: Acute (2) Sepsis: -Source not definitively identified, although suspect UTI -Continue Levaquin, anticipate 7 days of treatment Status: Acute (3) Weakness: -Patient too weak and debilitated to return to assisted living facility -Awaiting insurance authorization for intermediate facility placement -Continue PT and OT Status: Acute (4) Hypoxia: -Suspected secondary to sleep apnea -Would benefit from outpatient sleep study Status: Acute (5) Diabetes mellitus: -With hyperglycemia -Holding home Jardiance and glipizide -Start Lantus 10 units at bedtime -Continue sliding scale insulin correction Status: Acute (6) Hypertension: -Continue metoprolol tartrate -We will restart home HCTZ -Continue holding home amlodipine -Monitor blood pressure closely Status: Acute (7) Schizoaffective disorder, bipolar type: -Continue Latuda -Continue Riserdal -Continue sertraline Status: Acute (8) Hyperlipidemia: Status: Acute (9) Normocytic anemia: Status: Acute (10) Mild intellectual disabilities: -Mentation at baseline Status: Acute Plan DVT ppx: Apixaban Code: Full Code Attestations Medical Necessity Statement*: Patient no longer candidate for [facility], requires SNF placement, however insurance authorization has still not approved yet requiring him to remain hospitalized due to no safe discharge plan. Coding Level of Care Code Acute Coagulating Bath Operator for Chg Fwd Diagnoses Normocytic anemia D64.9 Atrial fibrillation with RVR I48.91 Sepsis A41.9 Weakness R53.1 Hypoxia R09.02 Diabetes mellitus E11.9 Hyperlipidemia E78.5 Hypertension I10 Schizoaffective disorder, bipolar type F25.0 Mild intellectual disabilities F70
[2021-11-23 11:33] LABS: Glucose Point of Care 246 mg/dL (70-110)
[2021-11-23 17:10] LABS: Glucose Point of Care 206 mg/dL (70-110)
[2021-11-23] MEDS: insulin glargine 100 units/1 mL 10 UNIT SUBCUT (22:10)
[2021-11-23 22:14] LABS: Glucose Point of Care 240 mg/dL (70-110)
[2021-11-24] VITALS (9 sets, daily range): BP systolic 116–173; BP diastolic 64–96; PULSE 61–73; RESP 16–18; TEMP 36.3–37.4; O2SAT 94–97
[2021-11-24] MEDS: levoFLOXacin 750 mg Tablet PO (06:13)
[2021-11-24] MEDS: risperiDONE 1 mg Tablet PO ×2 (06:13→20:32)
[2021-11-24] MEDS: sertraline 100 mg Tablet PO (06:13)
[2021-11-24] MEDS: aspirin 81 mg EC Tablet PO (06:13)
[2021-11-24 06:39] LABS: Glucose Point of Care 241 mg/dL (70-110)
[2021-11-24] MEDS: hydroCHLOROthiazide 25 mg Tablet 12.5 MG PO (08:47)
[2021-11-24] MEDS: lurasidone 80 mg Tablet PO (08:47)
[2021-11-24] MEDS: metoprolol tartrate 50 mg Tablet PO ×2 (08:47→20:32)
[2021-11-24] MEDS: apixaban 5 mg Tablet PO ×2 (08:48→20:32)
[2021-11-24] MEDS: insulin lispro 100 unit/1 mL SUBCUT ×4 (08:48→21:26)
[2021-11-24] MEDS: amiodarone 200 mg Tablet 400 MG PO ×2 (08:48→17:19)
--- NOTE | 2021-11-24 10:03 | P.PN_ITS ---
Subjective Subjective: Luisito says only a few words when I greet him. He can say hello, and denies any pain. However, conversation is limited. I believe this is secondary to his underlying mental health issues. Medications: Reviewed: Yes Vitals/I&O/Wt Last Vital Signs Temp 97.8 F 11/24/21 08:00 Pulse 72 11/24/21 08:00 Resp 17 11/24/21 08:00 BP 144/74 11/24/21 08:00 Pulse Ox 96 11/24/21 08:00 11/23/21 11/24/21 11/24/21 22:59 06:59 14:59 Intake Total 240 / 600 250 / 250 Output Total 0 / 0 Balance 240 / 600 0 / 600 250 / 250 Physical Exam Narrative: General exam is a quiet white male who smiles when I greet him and can certainly follow all directions. He can answer few questions. Neck is supple no lymphadenopathy thyromegaly Cardiovascular regular rate and rhythm without murmur Lungs clear no wheezing or crackles Abdomen is soft obese nontender positive bowel sounds. No distention Extremities no cyanosis clubbing or edema. A black eschar is noted over the left knee. : Slight scrotal edema is noted. Data : 11/22/21 04:33 11/22/21 04:33 A&P Assessment and plan (1) Atrial fibrillation with RVR: Currently in sinus rhythm Continue metoprolol Continue amiodarone. Plan on decreasing to 200 mg twice daily after 1 week Continue to monitor for any recurrence of his atrial fibrillation. Currently anticoagulated with apixaban Echo demonstrated preserved EF, no major valvular abnormalities, normal diastolic function Status: Acute (2) Sepsis: Presumed to be secondary to UTI. Unfortunately urine culture was not done on admission. He is on track to finish 7 days of Levaquin. This is p.o. currently. Blood cultures negative to date Status: Acute (3) Weakness: Significant weakness. Awaiting nursing facility placement for rehabilitation currently. Continue PT and OT. Status: Acute (4) Hypoxia: CTA did not demonstrate infiltrate. No pulmonary embolism was noted Continues to wean. Will need home oxygen evaluation prior to discharge. Status: Acute (5) Diabetes mellitus: Continue Lantus, sliding scale insulin. Status: Acute (6) Schizoaffective disorder, bipolar type: Continue home medications. Behaviors controlled currently. Status: Acute Plan Hypertension. Blood pressure coming under better control. Multiple other medicals problems as outlined in past medical history Eliquis will suffice for DVT prophylaxis Full code Attestations 2 Medical Necessity Statement*: Requires continued hospitalization, pending placement secondary to global weakness. Continue to monitor heart rate closely secondary to history of atrial fibrillation Coding Level of Care Code Acute Band Presser for g Fwd Diagnoses Atrial fibrillation with RVR I48.91 Sepsis A41.9 Weakness R53.1 Hypoxia R09.02 Diabetes mellitus E11.9 Schizoaffective disorder, bipolar type F25.0
--- NOTE | 2021-11-24 10:56 | PC.SOCIAL ---
IMM Update pg 2 of IMM updated and reviewed w/ patient. Copy provided and Copy in chart updated.
--- NOTE | 2021-11-24 11:18 | PC.NURSE ---
Patient stated the scrape to his left knee was from when he fell at the facility. It is scabbed over and no bleeding is noted. Patient also has a scabbed cover blister to the top of his right great toe. Patient denies any pain either of them.
[2021-11-24 12:26] LABS: SARS Covid-2 Antigen Negative (Negative)
[2021-11-24 12:39] LABS: Add Urine Microscopic? NO; Charge for UA Resulting for Rev
[2021-11-24 12:51] LABS: Protein Urine Neg (Negative); Specific Gravity, Urine 1.015 (1.005-1.030); Urine Appearance Clear (CLEAR); Urine Color Yellow (Yellow); pH Urine 5 (5-7)
[2021-11-24 12:52] LABS: Bilirubin Urine Neg (Negative); Blood Urine Neg (Negative); Glucose Urine UA 4+ (Normal); Ketones Urine 1+ (Negative); Leukocyte Esterase Urine Negative (Negative); Nitrate Urine Negative (Negative); Urobilinogen Urine Norm (Negative)
[2021-11-24 12:57] LABS: Glucose Point of Care 225 mg/dL (70-110)
[2021-11-24 17:04] LABS: Glucose Point of Care 174 mg/dL (70-110)
[2021-11-24 20:07] LABS: Glucose Point of Care 240 mg/dL (70-110)
[2021-11-24] MEDS: insulin glargine 100 units/1 mL 10 UNIT SUBCUT (21:26)
[2021-11-25] VITALS (10 sets, daily range): BP systolic 122–147; BP diastolic 69–82; PULSE 63–73; RESP 16–18; TEMP 36.4–37.2; O2SAT 90–97
[2021-11-25] MEDS: sertraline 100 mg Tablet PO (06:03)
[2021-11-25] MEDS: levoFLOXacin 750 mg Tablet PO (06:03)
[2021-11-25] MEDS: aspirin 81 mg EC Tablet PO (06:03)
[2021-11-25] MEDS: risperiDONE 1 mg Tablet PO ×2 (06:03→20:44)
[2021-11-25 06:05] LABS: Basophils % 0.3 %; Eosinophils # 0.4 10^3/uL (0.0-0.8); Eosinophils % 4.7 %; Hematocrit 35.1 % (42.0-52.0); Hemoglobin 10.9 g/dL (11.7-16.6); Lymphocytes # 1.7 10^3/uL (0.8-4.8); Lymphocytes % 18.4 %; Mean Corpuscular HGB Conc 31.1 g/dL (30.0-36.0); Mean Corpuscular Hemoglobin 25.3 pg (28.0-34.0); Mean Corpuscular Volume 81.4 fl (80-94); Mean Platelet Volume 9.7 fL (7.4-10.4); Monocytes # 0.5 10^3/uL (0.2-0.9); Monocytes % 5.2 %; Neutrophils # 6.44 10^3/uL (1.8-7.7); Neutrophils % 70.7 %; Nucleated Red Blood Cells % 0 %; Platelet Count 184 10^3/cmm (130-400); Red Blood Count 4.31 10^6/uL (4.1-5.3); Red Cell Distribution Width 15.4 % (12.1-15.1); White Blood Count 9.1 10^3/uL (4.0-10.0)
[2021-11-25 06:33] LABS: Anion Gap 12.5 (5-19); Blood Urea Nitrogen 14 mg/dL (6-20); Calcium 8.3 mg/dL (8.5-10.5); Carbon Dioxide 29 mmol/L (22-29); Chloride 97 mmol/L (98-107); Glomerular Filtration Rate 138.4 mL/min (90-130); Glucose 178 mg/dL (65-115); Osmolality Calculated 285 mOsm/kg (285-295); Potassium 3.5 mmol/L (3.5-5.1); Sodium 135 mmol/L (136-145)
[2021-11-25] MEDS: metoprolol tartrate 50 mg Tablet PO ×2 (08:44→20:44)
[2021-11-25] MEDS: hydroCHLOROthiazide 25 mg Tablet 12.5 MG PO (08:44)
[2021-11-25] MEDS: apixaban 5 mg Tablet PO ×2 (08:44→20:43)
[2021-11-25] MEDS: sennosides-docusate Tablet 2 TAB PO ×2 (08:44→18:32)
[2021-11-25] MEDS: lurasidone 80 mg Tablet PO (08:44)
[2021-11-25] MEDS: amiodarone 200 mg Tablet 400 MG PO ×2 (08:44→18:32)
[2021-11-25 08:47] LABS: Glucose Point of Care 218 mg/dL (70-110)
[2021-11-25] MEDS: insulin lispro 100 unit/1 mL SUBCUT ×4 (08:50→21:57)
[2021-11-25 08:57] LABS: Glucose Point of Care 181 mg/dL (70-110)
--- NOTE | 2021-11-25 10:01 | P.PN_ITS ---
Subjective Subjective: Luisito is unchanged from yesterday. He will say yes or no to questions but his understanding is limited. I do not gather that he is in any discomfort. Medications: Reviewed: Yes Vitals/I&O/Wt Last Vital Signs Temp 98.3 F 11/25/21 08:00 Pulse 73 11/25/21 08:00 Resp 18 11/25/21 08:00 BP 134/69 11/25/21 08:00 Pulse Ox 93 11/25/21 08:00 11/24/21 11/25/21 11/25/21 22:59 06:59 14:59 Intake Total 400 / 890 120 / 1010 Output Total 600 / 600 Balance -200 / 290 120 / 410 Physical Exam Narrative: General exam no obvious distress Neck is supple no lymphadenopathy thyromegaly Cardiovascular regular rate and rhythm without murmur Lungs clear no wheezing or crackles Abdomen is soft obese nontender positive bowel sounds. No distention Extremities no cyanosis clubbing or edema. A black eschar is noted over the left knee. : Appears normal today Data : 11/25/21 05:03 11/25/21 05:03 Micro: Microbiology 11/19/21 10:11 Blood Culture - Final Blood NO GROWTH AFTER 5 DAYS 11/19/21 10:11 Blood Culture - Final Blood NO GROWTH AFTER 5 DAYS A&P Assessment and plan (1) Atrial fibrillation with RVR: Currently in sinus rhythm Continue metoprolol Continue amiodarone. Plan on decreasing to 200 mg twice daily on discharge for 1 week, then 200 mg daily Continue to monitor for any recurrence of his atrial fibrillation. Currently anticoagulated with apixaban Echo demonstrated preserved EF, no major valvular abnormalities, normal diastolic function Will need outpatient follow-up with cardiology Status: Acute (2) Sepsis: Presumed to be secondary to UTI. Unfortunately urine culture was not done on admission. He is on track to finish 7 days of Levaquin. This is p.o. curre ntly. No evidence of fever. Blood cultures negative to date Status: Acute (3) Weakness: Significant weakness. Awaiting nursing facility placement for rehabilitation currently. Continue PT and OT. Awaiting approval for placement. Status: Acute (4) Hypoxia: CTA did not demonstrate infiltrate. No pulmonary embolism was noted Continues to wean. Home oxygen evaluation prior to discharge Status: Acute (5) Diabetes mellitus: Continue Lantus, sliding scale insulin. Significant reduction in his diabetic medication will occur at discharge. Status: Acute (6) Schizoaffective disorder, bipolar type: Continue home medications. Behaviors controlled currently. Status: Acute Plan Hypertension. Blood pressure controlled currently Multiple other medicals problems as outlined in past medical history Eliquis will suffice for DVT prophylaxis Full code Attestations Medical Necessity Statement*: Needs continued hospitalization secondary to weakness pending placement at shelter facility Coding Level of Care Code Acute Quality Assistant for [facility] Fwd Diagnoses Atrial fibrillation with RVR I48.91 Sepsis A41.9 Weakness R53.1 Hypoxia R09.02 Diabetes mellitus E11.9 Schizoaffective disorder, bipolar type F25.0
[2021-11-25 12:15] LABS: Glucose Point of Care 248 mg/dL (70-110)
[2021-11-25 17:27] LABS: Glucose Point of Care 221 mg/dL (70-110)
[2021-11-25 21:28] LABS: Glucose Point of Care 230 mg/dL (70-110)
[2021-11-25] MEDS: insulin glargine 100 units/1 mL 10 UNIT SUBCUT (21:57)
[2021-11-26] VITALS (9 sets, daily range): BP systolic 104–159; BP diastolic 62–78; PULSE 65–77; RESP 16–22; TEMP 36.6–36.8; O2SAT 90–96
[2021-11-26] MEDS: lurasidone 80 mg Tablet PO (06:04)
[2021-11-26] MEDS: aspirin 81 mg EC Tablet PO (06:04)
[2021-11-26] MEDS: sertraline 100 mg Tablet PO (06:05)
[2021-11-26] MEDS: levoFLOXacin 750 mg Tablet PO (06:05)
[2021-11-26] MEDS: risperiDONE 1 mg Tablet PO ×2 (06:05→21:29)
[2021-11-26 06:55] LABS: Glucose Point of Care 243 mg/dL (70-110)
--- NOTE | 2021-11-26 08:07 | PM.PN ---
Subjective Medications: Reviewed: Yes Vitals/I&O/Wt Last Vital Signs Temp 97.8 F 11/26/21 07:50 Pulse 75 11/26/21 07:50 Resp 18 11/26/21 07:50 BP 133/76 11/26/21 07:50 Pulse Ox 91 11/26/21 07:50 11/25/21 11/26/21 11/26/21 22:59 06:59 14:59 Intake Total 510 / 990 Output Total 650 / 650 Balance -140 / 340 Data : 11/25/21 05:03 11/25/21 05:03 Coding Level of Care Code Acute [employer] Weaver for Simig Mckenna
[2021-11-26] MEDS: metoprolol tartrate 50 mg Tablet PO ×2 (08:26→21:29)
[2021-11-26] MEDS: amiodarone 200 mg Tablet 400 MG PO ×2 (08:26→17:30)
[2021-11-26] MEDS: hydroCHLOROthiazide 25 mg Tablet 12.5 MG PO (08:26)
[2021-11-26] MEDS: sennosides-docusate Tablet 2 TAB PO (08:26)
[2021-11-26] MEDS: apixaban 5 mg Tablet PO ×2 (08:27→21:29)
[2021-11-26] MEDS: insulin lispro 100 unit/1 mL SUBCUT ×4 (08:27→21:29)
--- NOTE | 2021-11-26 09:17 | PC.SOCIAL ---
IMM Update Pg. 2 of IMM updated and reviewed with patient, who verbalized understanding. Copy provided.
[2021-11-26 11:47] LABS: Glucose Point of Care 254 mg/dL (70-110)
--- NOTE | 2021-11-26 15:34 | PM.PN ---
Subjective Subjective: Luisito has been doing okay. Nursing has no concerns. He is weaned off oxygen. He denies any pain. He did eat this morning. We are still awaiting placement. Medications: Reviewed: Yes Vitals/I&O/Wt Last Vital Signs Temp 98.3 F 11/26/21 15:31 Pulse 66 11/26/21 15:31 Resp 16 11/26/21 15:31 BP 124/73 11/26/21 15:31 Pulse Ox 93 11/26/21 15:31 11/26/21 11/26/21 11/26/21 06:59 14:59 22:59 Intake Total 480 / 480 Output Total 300 / 300 Balance 180 / 180 Physical Exam Narrative: General exam no distress Neck is supple, no lymphadenopathy or thyromegaly Cardiovascular regular rate rhythm without murmur Lungs clear no wheezing or crackles Abdomen is soft with positive bowel sounds Extremities no cyanosis clubbing or edema Data : 11/25/21 05:03 11/25/21 05:03 A&P Assessment and plan (1) Atrial fibrillation with RVR: Resolved. Continue metoprolol, amiodarone. Plan to decrease amiodarone to 200 mg twice daily on discharge for 1 week then 200 mg daily Continue anticoagulation with apixaban Echocardiogram largely normal Will need outpatient cardiology follow-up. Status: Acute (2) Sepsis: Resolved No need for further antibiotics on discharge. Finishing up Levaquin here. Status: Acute (3) Weakness: Still with significant weakness. Awaiting retirement facility approval for placement Status: Acute (4) Hypoxia: Resolved CTA did not demonstrate pneumonia, pulmonary embolism Status: Acute (5) Diabetes mellitus: Continue Lantus, sliding scale insulin Status: Acute (6) Schizoaffective disorder, bipolar type: Continue home medications, behavior controlled currently Status: Acute Plan Hypertension, controlled Multiple other medical problems as outlined in past medical history Eliquis will suffice for DVT prophylaxis Full code Attestations Medical Necessity Statement*: Awaiting placement Coding Level of Care Code Acute Underwriting Analyst for g Fwd Diagnoses Atrial fibrillation with RVR I48.91 Sepsis A41.9 Weakness R53.1 Hypoxia R09.02 Diabetes mellitus E11.9 Schizoaffective disorder, bipolar type F25.0
[2021-11-26 17:17] LABS: Glucose Point of Care 259 mg/dL (70-110)
[2021-11-26 21:02] LABS: Glucose Point of Care 309 mg/dL (70-110)
[2021-11-26] MEDS: insulin glargine 100 units/1 mL 10 UNIT SUBCUT (21:30)
[2021-11-27] VITALS: BP 147/83; PULSE 60; RESP 18; TEMP 36.5; O2SAT 90
[2021-11-27 04:00] VITALS: BP 123/70; PULSE 67; RESP 18; TEMP 36.7; O2SAT 92
[2021-11-27] MEDS: lurasidone 80 mg Tablet PO (06:10)
[2021-11-27] MEDS: sertraline 100 mg Tablet PO (06:10)
[2021-11-27] MEDS: aspirin 81 mg EC Tablet PO (06:10)
[2021-11-27] MEDS: risperiDONE 1 mg Tablet PO (06:10)
[2021-11-27] MEDS: levoFLOXacin 750 mg Tablet PO (06:10)
--- NOTE | 2021-11-27 07:20 | P.DS_ITS ---
Discharge Providers Date of Admission: 11/19/21 08:49 Date of Discharge: November 27, 2021 Attending Provider at Admission: Carlos Chiu DO Attending Provider at Discharge: Regino Gracia MD Diagnoses at Discharge Discharge Diagnosis (1) Atrial fibrillation with RVR: Status: Acute (2) Sepsis: Status: Acute (3) Weakness: Status: Acute (4) Hypoxia: Status: Acute (5) Diabetes mellitus: Status: Acute (6) Schizoaffective disorder, bipolar type: Status: Acute Reason for Visit Reason for Visit: weakness Hospital Course Hospital Course Luisito is a 56-year-old white male who presented from an assisted living with weakness, hypoxia, and was found to be in atrial fibrillation with rapid ventricular rate. IV amiodarone was initiated. He appeared dehydrated and he received hydration. Thyroid tests were checked and normal. Echocardiogram was performed demonstrating preserved ejection fraction, no major valvular abnormalities. Levaquin was added for concern of possible infection, but no organism ever grew. There was concern he may have had a urine infection and culture not obtained upon admission. Eventually he converted to sinus rhythm. Metoprolol was added for hypertension. He is currently on a tapered schedule of p.o. amiodarone. He finished up his Levaquin dosing in the hospital, and will not need this on outpatient. He did receive a CTA secondary to hypoxia during his hospital stay. No pneumonia or pulmonary embolism was noted. He was able to wean off oxygen prior to discharge. On November 27 he was stable, and able to be transferred to skilled care for continued rehabilitation secondary to his weakness. Other studies done while in the hospital included a head CT, no acute changes and a left knee x-ray demonstrating no fracture. Blood culture showed no growth. Physical Exam Narrative: General exam is a white male, in no apparent distress. Delayed understanding is present, which is his baseline. Neck is supple without lymphadenopathy Cardiovascular regular rate rhythm without murmur Lungs clear Abdomen is soft, positive bowel sounds Extremities no cyanosis clubbing or edema Discharge Data Studies Completed and Pending Completed Studies During Hospitalization Category Date Time Status CTA chest [CT angio chest PE protcl [id number]] Urgent Cat Scan 11/19/21 05:28 Completed XR chest 1V portable [id number] Stat Exams 11/19/21 04:19 Completed XR knee LT 3V* [id number] Stat Exams 11/19/21 04:19 Completed CV. echo wo/w contrast [id number] Routine Ultrasound 11/19/21 06:08 Completed Pending at discharge Category Date Time Status Vitamin D 1,25 Dihydroxy Routine Lab 11/19/21 06:59 Received Radiology Impressions Chest X-Ray 11/19/21 04:19 IMPRESSION: No acute findings. Knee X-Ray 11/19/21 04:19 IMPRESSION: No acute findings. Chest CTA 11/19/21 05:28 IMPRESSION: 1. No large central or proximal segmental pulmonary embolus. Evaluation of the more distal vessels is limited by significant motion artifact and therefore more distal emboli cannot be excluded. 2. Small to moderate pericardial effusion. 3. Slightly nodular contour of the liver, correlate with history of cirrhosis. Laboratory Results WBC 9.1 10^3/uL (4.0-10.0) 11/25/21 05:03 Corrected WBC Cancelled 11/20/21 03:07 RBC 4.31 10^6/uL (4.1-5.3) 11/25/21 05:03 Hgb 10.9 g/dL (11.7-16.6) L 11/25/21 05:03 Hct 35.1 % (42.0-52.0) L 11/25/21 05:03 MCV 81.4 fl (80-94) 11/25/21 05:03 MCH 25.3 pg (28.0-34.0) L 11/25/21 05:03 MCHC 31.1 g/dL (30.0-36.0) 11/25/21 05:03 RDW 15.4 % (12.1-15.1) H 11/25/21 05:03 Plt Count 184 10^3/cmm (130-400) 11/25/21 05:03 MPV 9.7 fL (7.4-10.4) 11/25/21 05:03 Gran % Cancelled 11/20/21 03:07 Neut % (Auto) 70.7 % 11/25/21 05:03 Lymph % (Auto) 18.4 % 11/25/21 05:03 [place] % (Auto) 5.2 % 11/25/21 05:03 Eos % (Auto) 4.7 % 11/25/21 05:03 Baso % (Auto) 0.3 % 11/25/21 05:03 Neut # (Auto) 6.44 10^3/uL (1.8-7.7) 11/25/21 05:03 Lymph # (Auto) 1.7 10^3/uL (0.8-4.8) 11/25/21 05:03 [place] # (Auto) 0.5 10^3/uL (0.2-0.9) 11/25/21 05:03 Eos # (Auto) 0.4 10^3/uL (0.0-0.8) 11/25/21 05:03 Baso # (Auto) 0.0 10^3/uL (0.0-0.1) 11/25/21 05:03 Absolute Gran (auto) Cancelled 11/20/21 03:07 Nucleated RBC % (auto) 0 % 11/25/21 05:03 Nucleated RBCs # 0.0 /100WBC 11/25/21 05:03 Sodium 135 mmol/L (136-145) L 11/25/21 05:03 Potassium 3.5 mmol/L (3.5-5.1) 11/25/21 05:03 Chloride 97 mmol/L (98-107) L 11/25/21 05:03 Carbon Dioxide 29 mmol/L (22-29) 11/25/21 05:03 Anion Gap 12.5 (5-19) 11/25/21 05:03 BUN 14 mg/dL (6-20) 11/25/21 05:03 Creatinine 0.6 mg/dL (0.7-1.2) L 11/25/21 05:03 GFR Calculation 138.4 mL/min (90-130) H 11/25/21 05:03 Glucose 178 mg/dL (65-115) H 11/25/21 05:03 POC Glucose 309 mg/dL (70-110) H 11/26/21 20:16 Calculated Osmolality 285 mOsm/kg (285-295) 11/25/21 05:03 Lactate 1.1 mmol/L (0.5-2.2) 11/19/21 10:11 Calcium 8.3 mg/dL (8.5-10.5) L 11/25/21 05:03 Phosphorus 3.0 mg/dL (2.5-4.5) 11/22/21 04:33 Magnesium 2.2 mg/dL (1.7-2.3) 11/19/21 04:24 Iron 17 ug/dL (59-158) L 11/19/21 04:24 TIBC 323 mcg/dl 11/19/21 04:24 % Saturation 5.2 % (20-50) L 11/19/21 04:24 Unsat Iron Binding 306 ug/dL (112-347) 11/19/21 04:24 Ferritin 85 ng/mL (30-400) 11/19/21 04:24 Total Bilirubin 0.5 mg/dL (0.15-1.2) 11/19/21 04:24 AST 29 U/L (0-40) 11/19/21 04:24 ALT 40 U/L (0-41) 11/19/21 04:24 Alkaline Phosphatase 54 IU/L (40-130) 11/19/21 04:24 Troponin T Baseline 35 ng/L (0-15) H 11/19/21 04:24 Troponin T 120 Minute 48.32 ng/L (0-15) H 11/19/21 06:59 Delta Troponin T 13.32 ABS# (0-10) H* 11/19/21 06:59 Troponin T Hi Sens 6Hr 40.48 ng/L (0-15) H 11/19/21 10:11 Troponin T Hi Sens 6Hr Delta 5.48 ng/L (0-12) 11/19/21 10:11 C-Reactive Protein 65.3 mg/L (0.0-4.9) H 11/22/21 04:33 NT-Pro-B Natriuret Pep 422 pg/mL (0-125) H 11/19/21 04:24 Total Protein 6.4 g/dL (6.6-8.7) L 11/19/21 04:24 Albumin 3.3 g/dL (3.5-5.2) L 11/22/21 04:33 Globulin 2.5 g/dL (1.3-4.6) 11/19/21 04:24 Vitamin B12 494 pg/mL (232-1245) 11/19/21 04:24 25-OH Vitamin D Total 25 ng/mL (30-100) L 11/19/21 04:24 Folate 8.2 ng/mL (4.5-32.2) 11/19/21 06:59 Procalcitonin 0.12 ng/mL (0-0.5) 11/19/21 04:24 TSH 4.13 uIU/mL (0.27-4.20) 11/19/21 04:24 Free T4 1.02 ng/dL (0.82-1.77) 11/19/21 04:24 Urine Color Yellow (Yellow) 11/24/21 12:16 Urine Appearance Clear (CLEAR) 11/24/21 12:16 Urine pH 5 (5-7) 11/24/21 12:16 Ur Specific [place] 1.015 (1.005-1.030) 11/24/21 12:16 Urine Protein Neg (Negative) 11/24/21 12:16 Urine Glucose (UA) 4+ (Normal) H 11/24/21 12:16 Urine Ketones 1+ (Negative) H 11/24/21 12:16 Urine Blood Neg (Negative) 11/24/21 12:16 Urine Nitrate Negative (Negative) 11/24/21 12:16 Urine Bilirubin Neg (Negative) 11/24/21 12:16 Urine Urobilinogen Norm mg/dL (Negative) 11/24/21 12:16 Ur Leukocyte Esterase Negative (Negative) 11/24/21 12:16 Vancomycin Trough 7.2 ug/mL (10-15) L 11/21/21 20:54 Influenza Type A Ag Negative (Negative) 11/19/21 09:50 Influenza Type B Ag Negative (Negative) 11/19/21 09:50 SARS-CoV-2 Ag (Rapid) Negative (Negative) 11/24/21 11:57 Vitals Last Vital Signs Temp 98.1 F 11/27/21 04:00 Pulse 67 11/27/21 04:00 Resp 18 11/27/21 04:00 BP 123/70 11/27/21 04:00 Pulse Ox 92 11/27/21 04:00 Discharge Plan Discharge Patient Disposition: Xfer SNF Condition: Stable Prescriptions: New polyethylene glycol 3350 17 gram Powder In Packet 17 g PO DAILY Qty: 30 0RF Eliquis 5 mg Tablet 5 mg PO BID@0900,2100 Qty: 60 0RF metoprolol tartrate 50 mg Tablet 50 mg PO BID@0900,2100 Qty: 60 0RF amiodarone 200 mg tablet 200 mg PO BID Qty: 60 0RF Rx Instructions: 200 mg twice daily x1 week then 200 mg daily. Continued rosuvastatin [Crestor] 20 mg tablet 20 mg PO DAILY@20 0RF omeprazole 40 mg capsule,delayed release(DR/EC) 40 mg PO DAILY@07 0RF olmesartan [Benicar] 40 mg tablet 40 mg PO DAILY@07 0RF acetaminophen 325 mg Tablet 650 mg PO Q6H PRN (Reason: Pain) 0RF loperamide [Imodium A-D] 2 mg Tablet 2 mg PO TID PRN (Reason: Constipation) 0RF aspirin 81 mg Tablet,Delayed Release (Dr/Ec) 81 mg PO DAILY@07 0RF hydrochlorothiazide 12.5 mg Capsule 12.5 mg PO DAILY@07 0RF risperidone 1 mg Tablet 1 mg PO BID@07,20 0RF magnesium hydroxide [Milk Of Magnesia Concentrated] 2,400 mg/10 mL Suspension 30 ml PO DAILY PRN (Reason: Acid Reflux) 0RF desmopressin 0.2 mg tablet 0.1 mg PO BEDTIME 0RF sertraline 100 mg tablet 100 mg PO DAILY@07 0RF Latuda 80 mg tablet 80 mg PO DAILY@07 0RF Rx Instructions: must administer with food (at least 350 calories) insulin lispro [Humalog KwikPen Insulin] 100 unit/mL Insulin Pen See Rx Instructions .ROUTE .COMPLEX 0RF Rx Instructions: PER SLIDING SCALE Minerin Creme Cream 1 applic TOPICAL DAILY@20 0RF omega 2-hjv-zgt-fish oil [Fish Oil] 1,000 mg (120 mg-180 mg) Capsule 1 cap PO DAILY 0RF Jardiance 10 mg Tablet 10 mg PO DAILY 0RF Artificial Tears (cmc) 1 % Drops 1 drp OPHTHALMIC (EYE) TID 0RF GenTeal Tears Severe(petrolat) 94-3 % Ointment 1 applic OPHTHALMIC (EYE) BEDTIME 0RF [place] Medicated 0.15-1 % Powder 1 ea TOPICAL DAILY 0RF Changed metformin 500 mg Tablet Extended Release 24hr 500 mg PO BID@,17 Qty: 0 0RF Tresiba FlexTouch U-200 200 unit/mL (3 mL) Insulin Pen 40 unit SUBCUT BEDTIME Qty: 0 0RF Discontinued amlodipine 10 mg tablet 10 mg PO DAILY@08 0RF oxybutynin chloride 10 mg Tablet Extended Release 24hr 10 mg PO DAILY@08 0RF metoprolol succinate 50 mg Tablet Extended Release 24 Hr 50 mg PO DAILY@07 0RF ibuprofen 600 mg Tablet 600 mg PO Q8H PRN (Reason: Pain) 0RF glipizide 5 mg Tablet 5 mg PO DAILY 0RF Ozempic 1 mg/dose (4 mg/3 mL) Pen Injector 1 mg SUBCUT Q7D 0RF Rx Instructions: On Wednesdays Discharge Orders: Discharge Order (Routine); Ordered 11/27/21 Ordered By: Regino Gracia Referrals: Lana Ngo FNP [Nurse Practitioner] - 2 weeks Discharge Diet: Diabetic Discharge Activity: Increase activity as tolerated Activity Restrictions/Additional Instructions: Follow-up with primary care provider 3 to 5 days Consider referral for sleep study Take all medicine as prescribed Follow blood sugar closely. Multiple medication changes were made secondary to lower sugars noted in the hospital. CBC and BMP in 3 to 5 days Follow-up with Lana Ngo, cardiology, new referral for atrial fibrillation in 2 weeks Discharge Attestations Time Spent in Discharge Care*: greater than 30 min Quality Metrics Clinical Quality Measures [ No reported AMI, CVA or VTE this stay] Coding Level of Care Code Acute g FW DC note Diagnoses Atrial fibrillation with RVR I48.91 Sepsis A41.9 Weakness R53.1 Hypoxia R09.02 Diabetes mellitus E11.9 Schizoaffective disorder, bipolar type F25.0
[2021-11-27 07:45] VITALS: BP 137/87; PULSE 81; RESP 18; TEMP 36.4; O2SAT 93
[2021-11-27 07:50] LABS: Glucose Point of Care 251 mg/dL (70-110)
[2021-11-27] MEDS: amiodarone 200 mg Tablet 400 MG PO (08:11)
[2021-11-27] MEDS: hydroCHLOROthiazide 25 mg Tablet 12.5 MG PO (08:11)
[2021-11-27] MEDS: metoprolol tartrate 50 mg Tablet PO (08:11)
[2021-11-27] MEDS: apixaban 5 mg Tablet PO (08:12)
[2021-11-27] MEDS: insulin lispro 100 unit/1 mL SUBCUT (08:12)
[2021-11-27 10:14] VITALS: BP 137/87; PULSE 81; RESP 18; TEMP 36.4; O2SAT 93
--- NOTE | 2021-11-27 10:17 | PC.NURSE ---
Patient discharged to custodial. Report called. Patient transported by wheel chair with ready transport.
[2021-11-29 11:27] LABS: Vit D 1,25 (Oh)2, Total 17 pg/mL (18-72); Vit D2 1,25 (Oh)2 <8 pg/mL; Vit D3 1,25 (Oh)2 17 pg/mL
== END 2021-11-27 10:18 | disposition skilled nursing facility (03) | DRG 308 ==
LOC: ER 06:06 → ICU 06:31 → MEDSURG 11-20 18:39
PROVIDERS: Internal Medicine; Admitting Provider Internal Medicine; Emergency Provider Emergency Medicine; Visit Provider Internal Medicine
DX: I48.91 Unspecified atrial fibrillation (principal); A41.9 Sepsis, unspecified organism; E87.1 Hypo-osmolality and hyponatremia; Z68.41 Body mass index [BMI] 40.0-44.9, adult; N17.9 Acute kidney failure, unspecified; I5A Non-ischemic myocardial injury (non-traumatic); N39.0 Urinary tract infection, site not specified; F70 Mild intellectual disabilities; F25.0 Schizoaffective disorder, bipolar type; E86.0 Dehydration; N32.81 Overactive bladder; D64.9 Anemia, unspecified; E11.9 Type 2 diabetes mellitus without complications; K21.9 Gastro-esophageal reflux disease without esophagitis; E78.5 Hyperlipidemia, unspecified; I10 Essential (primary) hypertension; E66.9 Obesity, unspecified; K59.00 Constipation, unspecified; I95.9 Hypotension, unspecified; Z79.84 Long term (current) use of oral hypoglycemic drugs; Z79.4 Long term (current) use of insulin; Z79.82 Long term (current) use of aspirin
CPT/HCPCS: 36415; 36416; 71045; 71275; 73562; 80048; 80053; 80069; 80202; 81003; 82306; 82607; 82652; 82728; 82746; 82962; 83540; 83550; 83605; 83735; 83880; 84100; 84145; 84439; 84443; 84484; 85025; 86140; 87040; 87426; 87804; 93005; 96365; 96367; 96372; 96375; 97110; 97116; 97161; 97166; 97530; 97535; 99285; C8929; G0378; J0282; J1815 ×2; J2405; J2543; J2550; J3370; J7030; J7050; J7060; Q9956; Q9967

== ENCOUNTER → 2022-03-12 13:17 | Outpatient (BNVA) | payer OTHER, SELFPAY | PROVIDERS: PCP Emergency Medicine Emergency Medical Services; Visit Provider Internal Medicine | DX: I48.91 Unspecified atrial fibrillation (principal); E11.9 Type 2 diabetes mellitus without complications; Z79.4 Long term (current) use of insulin; Z79.84 Long term (current) use of oral hypoglycemic drugs; E78.5 Hyperlipidemia, unspecified; I10 Essential (primary) hypertension; Z79.01 Long term (current) use of anticoagulants; Z87.891 Personal history of nicotine dependence | CPT/HCPCS: 99214 ==

== ENCOUNTER → 2022-09-14 13:17 | Outpatient (BNVA) | payer OTHER, SELFPAY | PROVIDERS: PCP Emergency Medicine Emergency Medical Services; Visit Provider Internal Medicine | DX: I48.91 Unspecified atrial fibrillation (principal); E78.5 Hyperlipidemia, unspecified; E11.9 Type 2 diabetes mellitus without complications; Z87.891 Personal history of nicotine dependence; Z79.01 Long term (current) use of anticoagulants; Z79.82 Long term (current) use of aspirin; Z79.4 Long term (current) use of insulin | CPT/HCPCS: 99214 ==

== ENCOUNTER 2022-09-30 14:19 | Outpatient (CLI) | payer OTHER, SELFPAY ==
--- NOTE | 2022-09-30 14:30 | USCV_ITS ---
Luisito Wilkinson Age: 57 Gender: M : 1965 Exam Date: 09/30/2022 15:17 Ordering Phys: Enrike Reed M.D ([email or web address]) Technologist: [place] [facility] [place]: sob chest pain BP: 134 / 84 HR: 63 Rhythm: Sinus Technical Quality: Adequate MEASUREMENTS (Male / Female) Normal Values 2D ECHO LV Diastolic Diameter PLAX 4.4 cm 4.2 - 5.9 / 3.9 - 5.3 cm LV Systolic Diameter PLAX 2.8 cm IVS Diastolic Thickness 1.3 cm 0.6 - 1.0 / 0.6 - 0.9 cm IVS Systolic Thickness 2.0 cm LVPW Diastolic Thickness 1.2 cm 0.6 - 1.0 / 0.6 - 0.9 cm LVPW Systolic Thickness 1.6 cm LVOT Diameter 2.0 cm LV Ejection Fraction 2D Teich 66.4 % LV Ejection Fraction MOD 2C 62.8 % LV Ejection Fraction 2C AL 64.4 % LA Diameter 4.2 cm Aorta at Sinotubular Diameter 3.0 cm IVC Diameter 2.3 cm M-MODE Aortic Annulus Diameter 4.1 cm LA Ao Ratio MM 1.0 MV E Point Septal Separation 0.8 cm DOPPLER AV Peak Velocity 210.0 cm/s LVOT Peak Velocity 122.0 cm/s AV Area Cont Eq vti 2.1 cm squared AV Area Cont Eq pk 1.9 cm squared MV Area PHT 2.8 cm squared Mitral E to A Ratio 0.9 MV E' Velocity 69.5 cm/s Mitral E to MV E' Ratio 15.4 Mitral E to LV E' Lateral Ratio 13.5 Mitral E to LV E' Septal Ratio 18.2 TR Peak Velocity 152.0 cm/s TR Peak Gradient 9.2 mmHg TV Peak E Velocity 73.0 cm/s Right Atrial Pressure 3.0 mmHg Pulmonary Artery Systolic Pressu 12.2 mmHg RV Acceleration Time 0.2 s FINDINGS Left Ventricle Left ventricle is normal in size. LV systolic function is normal with EF of 60 to 65%. No regional wall motion abnormalities. Right Ventricle Normal in size and function Right Atrium Normal in size Left Atrium Dilated Mitral Valve Structurally normal mitral valve. Trace mitral regurgitation. Aortic Valve Aortic valve is thickened. Mild aortic stenosis with aortic valve area of 2.1 cm2. Mean gradient across aortic valve of 9 mmHg. Tricuspid Valve Mild tricuspid regurgitation. Insufficient TR jet to evaluate RVSP. Pulmonic Valve Not well-visualized Pericardium Normal Aorta Normal in size IVC Appears dilated CONCLUSIONS LV systolic function is normal with EF of 60-65% Left atrial dilation Trace mitral regurgitation Mild aortic stenosis with aortic valve area of 2.1 cm2. Mean gradient across aortic valve of 9 mmHg. Mild tricuspid regurgitation. IVC appears dilated Compared to prior echocardiogram from 10/2021, patient has mild aortic stenosis now Enrike Reed MD (Electronically Signed) Final Date: 14 October 2022 17:22 S
== END 2022-09-30 14:20 | disposition home or self-care (01) ==
LOC: RAD 14:22
PROVIDERS: PCP Emergency Medicine Emergency Medical Services; Visit Provider Internal Medicine
DX: R06.02 Shortness of breath (principal)
CPT/HCPCS: 93306

== ENCOUNTER → 2023-03-15 13:32 | Outpatient (BNVA) | payer OTHER, SELFPAY | PROVIDERS: PCP Emergency Medicine Emergency Medical Services; Visit Provider Internal Medicine | DX: I48.91 Unspecified atrial fibrillation (principal); E11.9 Type 2 diabetes mellitus without complications; E78.5 Hyperlipidemia, unspecified; I10 Essential (primary) hypertension; Z87.891 Personal history of nicotine dependence; Z79.01 Long term (current) use of anticoagulants; Z79.84 Long term (current) use of oral hypoglycemic drugs | CPT/HCPCS: 99214 ==

== ENCOUNTER 2023-06-30 13:06 | Emergency (ER) | payer OTHER, SELFPAY ==
--- NOTE | 2023-06-30 13:15 | ED_ITS ---
HPI - Fall 2 General: Chief Complaint: Fall Stated Complaint: FALL Time Seen by Provider: 06/30/23 13:11 History of Present Illness: Patient brought in by EMS from an assisted living facility due to 2 falls in the last 2 days. Patient has a small bruise to the right anabaptism area. Patient reports some tenderness to the area. Patient denies headache, nausea vomiting, chest pain, shortness of breath, abdominal pain, cough, fever, nausea vomiting, diarrhea or constipation. Patient has a history of cerebral ataxia, and atrial fibs. Associated symptoms-after fall: Reports headache(s); Denies chest pain or neck pain Review of Systems 2 General: Reports: 10 or more systems reviewed and unremarkable except in HPI and below Const: Denies: fever(s) ENMT: Denies: throat pain Card: Denies: chest pain Resp: Denies: dyspnea or non-productive cough GI: Denies: nausea, vomiting, diarrhea or constipation : Denies: difficulty urinating Musc: Denies: neck pain or back pain Skin/Breast: Denies: new lesions Neuro: Reports: headache(s) PFSH ED 2 PFSH: Medical History Acute kidney injury Chest pain Hyperlipidemia Hyponatremia Hypotension Metabolic acidemia Mild intellectual disabilities Schizoaffective disorder, bipolar type Weakness Social History Smoking and tobacco/nicotine status: former use of tobacco/nicotine Physical Exam 2 Const: COMMON NORMALS: alert HENMT: HEAD & SCALP: scalp tenderness (Right anabaptism) and other (Small area of bruising to the right anabaptism area) FACE & SINUS: normal facial exam MOUTH: Normal oral and palatal mucosa present Neck/C-Spine: COMMON NORMALS: full ROM CERVICAL SPINE: No Cervical spine tenderness Resp: COMMON NORMALS: normal respiratory effort and clear to auscultation bilaterally AUSCULTATION: clear to auscultation bilaterally Cardio: COMMON NORMALS: regular rate and regular rhythm RATE: regular rate RHYTHM: regular rhythm GI: COMMON NORMALS: Soft to palpation and non-tender PALPATION: Yes Soft to palpation Back/Pelvis: COMMON NORMALS: thoracic and lumbar spine normal to inspection Extremity: COMMON NORMALS: full ROM Neuro: SENSORIUM/ORIENTATION: Yes alert Skin: COMMON NORMALS: turgor normal GENERAL SKIN EXAM: turgor normal Course 2 Vital Signs: Vital signs: Vital Signs Pulse Rate 58 L 06/30/23 13:59 Blood Pressure 154/80 06/30/23 13:59 MDM - Fall Medical Decision Making 57-year-old male patient comes in today for complaints of 2 recent falls over the last 2 days. Patient reports some tenderness to the scalp and area of bruising. Patient appears nontoxic. Respirations are even. No focal neural deficits. Abdomen soft nontender. No swelling is noted in the extremities. Differential diagnosis includes head injury, intracranial bleeding, skull fracture, electrolyte imbalance, arrhythmia. CT of the head was unremarkable. CBC and CMP were normal. EKG noted no atrial fibs or significant arrhythmia at this time. Orthostatic blood pressures were normal. Patient has chronic cerebral ataxia was problems to more unsteadiness of both feet. Discussed with patient the need to use his walker when getting up and ambulating in the room. Patient reported understanding of care plan and need for follow-up or return to the ER for worsening symptoms. Lab Data 06/30/23 13:33 06/30/23 13:[address] 06/30/23 13:15 IMPRESSION: 1. No acute intracranial abnormality. Laboratory Results WBC 7.76 10^3/uL (3.29-11.43) 06/30/23 13:33 RBC 4.95 10^6/uL (3.85-5.65) 06/30/23 13:33 Hgb 11.30 g/dL (11.27-16.99) 06/30/23 13:33 Hct 38.8 % (37-53) 06/30/23 13:33 MCV 78.4 fl (82-101) L 06/30/23 13:33 MCH 22.8 pg (27-33) L 06/30/23 13:33 MCHC 29.1 g/dL (30-55) L 06/30/23 13:33 RDW 15.8 % (12.1-15.1) H 06/30/23 13:33 Plt Count 159 10^3/cmm (157-399) 06/30/23 13:33 MPV 9.9 fL (7.4-10.4) 06/30/23 13:33 Neut % (Auto) 69.8 % 06/30/23 13:33 Lymph % (Auto) 18.2 % 06/30/23 13:33 Richardson % (Auto) 4.9 % 06/30/23 13:33 Eos % (Auto) 6.2 % 06/30/23 13:33 Baso % (Auto) 0.5 % 06/30/23 13:33 Neut # (Auto) 5.42 10^3/uL (1.8-7.7) 06/30/23 13:33 Lymph # (Auto) 1.4 10^3/uL (0.8-4.8) 06/30/23 13:33 Richardson # (Auto) 0.4 10^3/uL (0.2-0.9) 06/30/23 13:33 Eos # (Auto) 0.5 10^3/uL (0.0-0.8) 06/30/23 13:33 Baso # (Auto) 0.0 10^3/uL (0.0-0.1) 06/30/23 13:33 Nucleated RBC % (auto) 0 % 06/30/23 13:33 Nucleated RBCs # 0.0 /100WBC 06/30/23 13:33 Sodium 141 mmol/L (136-145) 06/30/23 13:33 Potassium 4.1 mmol/L (3.5-5.1) 06/30/23 13:33 Chloride 102 mmol/L (98-107) 06/30/23 13:33 Carbon Dioxide 26 mmol/L (22-29) 06/30/23 13:33 Anion Gap 17.1 (5-19) 06/30/23 13:33 BUN 14 mg/dL (6-20) 06/30/23 13:33 Creatinine 0.8 mg/dL (0.7-1.2) 06/30/23 13:33 GFR Calculation 98.9 mL/min (90-130) 06/30/23 13:33 Glucose 166 mg/dL (65-115) H 06/30/23 13:33 Calculated Osmolality 296 mOsm/kg (285-295) H 06/30/23 13:33 Calcium 9.0 mg/dL (8.5-10.5) 06/30/23 13:33 Total Bilirubin 0.4 mg/dL (0.15-1.2) 06/30/23 13:33 AST 24 U/L (0-40) 06/30/23 13:33 ALT 25 U/L (0-41) 06/30/23 13:33 Alkaline Phosphatase 61 U/L (40-130) 06/30/23 13:33 Total Protein 6.9 g/dL (6.6-8.7) 06/30/23 13:33 Albumin 4.0 g/dL (3.5-5.2) 06/30/23 13:33 Globulin 2.9 g/dL (1.3-4.6) 06/30/23 13:33 All radiology interpretation(s) finalized by discharge EKG Data EKG 1: I personally reviewed and interpreted this EKG as follows: EKG interpretation date: 06/30/23 EKG interpretation time: 13:54 Prior EKG tracings: not available for review Interpretation: Sinus rhythm with a regular rate at [address] elevation is noted. No ectopy is noted. No prior exam was available for immediate comparison. Computer generated interpretation: Sinus bradycardia, incomplete right bundle branch block, nonspecific T wave abnormality, borderline EKG, unconfirmed report. Discharge Plan Discharge Patient Disposition: Home Clinical Impression: Fall Qualifiers: Encounter type: initial encounter Qualified Code(s): W19.XXXA - Unspecified fall, initial encounter Head injury Qualifiers: Encounter type: initial encounter Qualified Code(s): S09.90XA - Unspecified injury of head, initial encounter Condition: Stable Prescriptions: No Action rosuvastatin [Crestor] 20 mg tablet 20 mg PO DAILY@20 omeprazole 40 mg capsule,delayed release(DR/EC) 40 mg PO DAILY@07 olmesartan [Benicar] 40 mg tablet 40 mg PO DAILY@07 levothyroxine 75 mcg capsule 75 mcg PO DAILY albuterol sulfate 2.5 mg /3 mL (0.083 %) solution for nebulization 2.5 mg inhalation Q4H PRN nystatin 100,000 unit/gram powder 1 applic topical BID amlodipine 5 mg tablet 5 mg PO DAILY Qty: 90 3RF amiodarone 200 mg tablet 200 mg PO DAILY insulin aspart U-100 [Novolog FlexPen U-100 Insulin] 100 unit/mL (3 mL) insulin pen See Rx Instructions SUBCUT TID Rx Instructions: sliding scale subcutaneously three times daily; acetaminophen 325 mg Tablet 650 mg PO Q6H PRN (Reason: Pain) loperamide [Imodium A-D] 2 mg Tablet 2 mg PO TID PRN (Reason: Constipation) aspirin 81 mg Tablet,Delayed Release (Dr/Ec) 81 mg PO DAILY@07 hydrochlorothiazide 12.5 mg Capsule 12.5 mg PO DAILY@07 risperidone 1 mg Tablet 1 mg PO BID@,20 magnesium hydroxide [Milk Of Magnesia Concentrated] 2,400 mg/10 mL Suspension 30 ml PO DAILY PRN (Reason: Acid Reflux) desmopressin 0.2 mg tablet 0.1 mg PO BEDTIME sertraline 100 mg tablet 100 mg PO DAILY@07 Latuda 80 mg tablet 80 mg PO DAILY@07 Rx Instructions: must administer with food (at least 350 calories) Minerin Creme Cream 1 applic TOPICAL DAILY@20 omega [id number] oil [Fish Oil] 1,000 mg (120 mg-180 mg) Capsule 1 cap PO DAILY Jardiance 10 mg Tablet 10 mg PO DAILY GenTeal Tears Severe(petrolat) 94-3 % Ointment 1 applic OPHTHALMIC (EYE) BEDTIME [place] Medicated 0.15-1 % Powder 1 ea TOPICAL DAILY polyethylene glycol 3350 17 gram Powder In Packet 17 g PO DAILY Qty: 30 0RF Eliquis 5 mg Tablet 5 mg PO BID@0900,2100 Qty: 60 0RF metoprolol tartrate 50 mg Tablet 50 mg PO BID@0900,2100 Qty: 60 0RF metformin 500 mg Tablet Extended Release 24hr 500 mg PO BID@, Qty: 0 0RF Tresiba FlexTouch U-200 200 unit/mL (3 mL) Insulin Pen 40 unit SUBCUT BEDTIME Qty: 0 0RF Discharge Orders: Discharge ED (Routine); Ordered 06/30/23 Ordered By: Guero Mondragon Referrals: Luisito Lnog DO [Primary Care Provider] - Coding Level of Care Code ED Medicare Compliance Auditor for [facility]
--- NOTE | 2023-06-30 13:15 | CTR_ITS ---
PROCEDURE INFORMATION: Exam: CT Head Without Contrast Exam date and time: 06/30/2023 1:49 PM Age: 57 years old Clinical indication: Injury or trauma; Fall; Blunt trauma (contusions or hematomas); Additional info: Head injury TECHNIQUE: Imaging protocol: Computed tomography of the head without contrast. Radiation optimization: All CT scans at this facility use at least one of these dose optimization techniques: automated exposure control; mA and/or kV adjustment per patient size (includes targeted exams where dose is matched to clinical indication); or iterative reconstruction. COMPARISON: CT head wo con* [id number] 11/18/2021 6:51 PM RADIATION DOSE METRICS: Total DLP (mGy-cm): 1213 FINDINGS: Brain: No evidence of intra-axial or extra-axial hemorrhage. No mass effect or midline shift. [place]-white differentiation is maintained. There is moderate cerebellar atrophy, which can be seen with chronic anticonvulsant or alcohol use. Basilar cisterns are patent. Cerebral ventricles: No hydrocephalus. Paranasal sinuses: The visualized paranasal sinuses are well aerated. Mastoid air cells: The visualized mastoids and middle ears are clear. Bones/joints: The visualized calvarium and bony orbits are intact. Soft tissues: No gross soft tissue abnormality. CT/CT head wo con* [id number] IMPRESSION: 1. No acute intracranial abnormality.
--- NOTE | 2023-06-30 13:16 | ECG_ITS ---
[facility] Test Date: 2023-06-30 Pat Name: Luisito Wilkinson Department: Room: Gender: Male [employer]: : 1965 Requested By: Guero Cardona Order Number: [id number] Dianne MD: Enrike Reed M.D. Measurements Intervals [place] Rate: 56 P: 18 WA: 141 QRS: 76 QRSD: 112 T: 62 QT: 452 QTc: 437 Interpretive Statements SINUS BRADYCARDIA INCOMPLETE RIGHT BUNDLE BRANCH BLOCK [90+ ms QRS DURATION, TERMINAL R IN V1/V2, 40+ ms S IN I/aVL/V4/V5/V6] NONSPECIFIC T-WAVE ABNORMALITY Compared to ECG 11/19/2021 09:43:08 Incomplete right bundle-branch block now present T-wave abnormality now present Sinus rhythm no longer present Electronically Signed On 06-30-2023 19:01:29 COMPUTER AIDED DRAFTER by Enrike Reed M.D. [id number]
[2023-06-30 13:41] LABS: Basophils % 0.5 %; Eosinophils # 0.5 10^3/uL (0.0-0.8); Eosinophils % 6.2 %; Hematocrit 38.8 % (37-53); Lymphocytes # 1.4 10^3/uL (0.8-4.8); Lymphocytes % 18.2 %; Mean Corpuscular HGB Conc 29.1 g/dL (30-55); Mean Corpuscular Hemoglobin 22.8 pg (27-33); Mean Corpuscular Volume 78.4 fl (82-101); Mean Platelet Volume 9.9 fL (7.4-10.4); Monocytes # 0.4 10^3/uL (0.2-0.9); Monocytes % 4.9 %; Neutrophils # 5.42 10^3/uL (1.8-7.7); Neutrophils % 69.8 %; Nucleated Red Blood Cells % 0 %; Platelet Count 159 10^3/cmm (157-399); Red Blood Count 4.95 10^6/uL (3.85-5.65); Red Cell Distribution Width 15.8 % (12.1-15.1); White Blood Count 7.76 10^3/uL (3.29-11.43)
[2023-06-30 13:57] LABS: Alanine Aminotransferase 25 U/L (0-41); Alkaline Phosphatase 61 U/L (40-130); Anion Gap 17.1 (5-19); Aspartate Amino Transferase 24 U/L (0-40); Blood Urea Nitrogen 14 mg/dL (6-20); Carbon Dioxide 26 mmol/L (22-29); Chloride 102 mmol/L (98-107); Globulin 2.9 g/dL (1.3-4.6); Glomerular Filtration Rate 98.9 mL/min (90-130); Glucose 166 mg/dL (65-115); Osmolality Calculated 296 mOsm/kg (285-295); Potassium 4.1 mmol/L (3.5-5.1); Sodium 141 mmol/L (136-145); Total Bilirubin 0.4 mg/dL (0.15-1.2); Total Protein 6.9 g/dL (6.6-8.7)
[2023-06-30 13:59] VITALS: BP 154/80; BP 160/92; BP 163/71; PULSE 58; PULSE 64; PULSE 66
--- NOTE | 2023-06-30 14:10 | PC.PHAR ---
PT IS FROM [facility] AND HIS NURSE IS JOHAN [phone]
== END 2023-06-30 15:43 | disposition home or self-care (01) ==
PROVIDERS: Emergency Provider Nurse Practitioner Family; PCP Emergency Medicine Emergency Medical Services
DX: S00.83XA Contusion of other part of head, initial encounter (principal); Z79.01 Long term (current) use of anticoagulants; Z79.4 Long term (current) use of insulin; Z79.84 Long term (current) use of oral hypoglycemic drugs; Z79.82 Long term (current) use of aspirin; Z87.891 Personal history of nicotine dependence; E78.5 Hyperlipidemia, unspecified; W19.XXXA Unspecified fall, initial encounter; Y92.129 Unspecified place in nursing home as the place of occurrence of the external cause
CPT/HCPCS: 36415; 70450; 80053; 85025; 93005; 99284

== ENCOUNTER → 2023-09-14 15:05 | Outpatient (BNVA) | payer OTHER, SELFPAY | PROVIDERS: PCP Emergency Medicine Emergency Medical Services; Visit Provider Internal Medicine | DX: E11.9 Type 2 diabetes mellitus without complications (principal); Z79.4 Long term (current) use of insulin; E78.5 Hyperlipidemia, unspecified; I10 Essential (primary) hypertension; I48.91 Unspecified atrial fibrillation; Z79.01 Long term (current) use of anticoagulants; Z87.891 Personal history of nicotine dependence | CPT/HCPCS: 99214 ==